=== PATIENT | male | born 1940 | race Caucasian/White ===

== ENCOUNTER 2025-02-15 13:20 | Outpatient (AMB) | payer MEDICARE, SELFPAY ==
--- NOTE | 2025-02-15 13:22 | A.OFFPC_ITS ---
Vital Signs 02/15/25 14:10 02/15/25 14:49 Height 6 ft Weight 1816 lb BMI 246.3 BP 144/65 H 130/60 Blood Pressure Location Rt brachial Rt brachial Position Sitting Sitting Respiration 16 Pulse 67 Pulse Source Pulse Oximeter Temp 98.3 F Temp Source Oral Pulse Oximetry (%) 95 Oxygen Delivery Method Room Air Intake Visit Reasons: EST CARE/PERSCRIPTIONS Intake Note: patient here for new patient visit and prescription Senior Validation Engineer Required: No Allergies No Known Allergies Allergy (Verified 02/15/25 14:23) Medication List - Last Reconciled 02/15/25 by Cristopher Paulson CNP acetaminophen (Tylenol) 325 mg PO QID PRN cholecalciferol (vitamin D3) 25 mcg PO DAILY rtjjzohbjqs-ecskvbsat-inxgqjfx 200-62.5-25 mcg (Trelegy Ellipta) 1 inh inhalation DAILY mecobalamin (vitamin B12) 1,000 mcg PO DAILY rosuvastatin 5 mg PO DAILY thiamine HCl (vitamin B1) 100 mg PO DAILY Tobacco use date assessed: 02/15/25 Fall risk assessment: No Falls in past year Last assessed Fall Risk: 02/15/25 Dental Screening Dental Screen Date: 02/15/25 Did you have a dental visit in the last 12 months?: No Did you have a dental problem in the last 6 months where you did not have access to dental care?: No Was dental information given to patient?: Patient has dentist HPI HPI Comments History of Present Illness Details 84-year-old male, accompanied by his wif e, presents to [facility]. He is on 3-4L continuous oxygen for COPD. Prior PCP? - Diane Perales Last office visit - 09/2024 CPE/labs - Over a year ago Acute issue(s) - None Past Medical History - COPD, kidney stones, arthritis, bladde r cancer, cataract both eyes Surgical History - Urostomy, cataract surgery, back surge ry x2 to remove kidney stones Family History - None Social History - Former smoker, quit 20 years ago. Does not vape. Does not drink alcohol. Denies recreational drug use - Has been making healthy dietary choice s. Exercises routinely. Generally sleep well Health maintenance - Last eye exam was in [address] Sanchez ziegler. He will call his standard machine stitcher to schedule an eye exam - Last dental visit was 2 years ago; enc ouraged to schedule an appointment with his dentist for routine dental care - Last tetanus vaccine was within the pa st 10 years - He notes that he is up-to-date on the shingles and pneumonia vaccines - Has not been vaccinated for the flu ; declines vaccination - Last colonoscopy was 10 years ago at [facility] Perales: Normal. Declines colonoscopy or Cologuard test at this time Specialists - Urologist Dr. Macias, [facility] pulmonology [facility] Medical History (Updated 02/15/25 @ 14:48 by Cristopher Paulson CNP) Arthritis COPD (chronic obstructive pulmonary disease) Kidney stones Surgical History (Updated 02/15/25 @ 15:02 by Cristopher Paluson CNP) History of urostomy Social History Housing: House Patient Tobacco Use Status: Never used Tobacco e-Cigarette/Vaping Use: Never Used Second Hand Smoke Exposure: No service: No Current occupational status: retired Cognitive needs: Yes Hearing needs: No Vision needs: No Questionnaire PHQ-9 Over the last 2 weeks, how often have you been bothered by any of the following problems? 1. Little interest or pleasure in doing things: not at all 2. Feeling down, depressed, or hopeless: not at all 3. Trouble falling or staying asleep, or sleeping too much: not at all 4. Feeling tired or having little energy: several days 5. Poor appetite or overeating: not at all 6. Feeling bad about yourself - or that you are a failure or have let yourself or your family down: not at all 7. Trouble concentrating on things, such as reading the newspaper or watching television: not at all 8. Moving or speaking so slowly that other people could have noticed. Or the opposite - being so fidgety or restless that you have been moving around a lot more than usual: not at all 9. Thoughts that you would be better off or of hurting yourself in some way: not at all Total score: 1 Depression Screening Interpretation: Negative Depression Screening Done: Yes 19212 - PHQ-9 Billing: Yes Source: Developed by Drs. Jose Alejandro Skinner, Anjelica Valdez, Saurabh Rosenthal and colleagues, with an educational radha from [employer]. Thrive Questionnaire Date Thrive assessed: 02/15/25 I am a: Patient What is your living situation today?: I have a steady place to live Within the past 12 months, did the food you bought not last and you didn't have the money to get more?: Never true Within the past 12 months, did you worry whether your food would run out before you got money to buy more?: Never true Do you have trouble paying for medicines?: No Do you have trouble getting transportation to medical appointments?: No Do you have trouble paying your heating and electricity bill?: No Do you have trouble taking care of your child, family member or friend?: No Do you have trouble with day-to-day activities such as bathing, preparing meals, shopping, managing finances, etc.?: No Are you currently unemployed and looking for a job?: No Are you interested in more education?: No Please select the resources that you would like help with: None Currently or been in a relationship where the following occur: No concerns reported THRIVE Score: 0 AUDIT C Alcohol Use Questionnaire (AUDIT-C) 1. How often do you have a drink containing alcohol?: Never 3. How often do you have six or more drinks on one occasion?: Never Total Score: 0 Score Reviewed/Action Taken: Yes BRUCE-7 AMB Questionnaire BRUCE-7 Date BRUCE - 7 assessed: 02/15/25 Feeling nervous, anxious, or on edge: 0 = Not at all Not being able to stop or control worryin = Not at all Worrying too much about different things: 0 = Not at all Trouble relaxin = Not at all Being so restless that it is hard to sit still: 0 = Not at all Becoming easily annoyed or irritable: 0 = Not at all Feeling afraid as if something awful might happen: 0 = Not at all Total BRUCE-7 score (0-4 normal; 5-9 mild; 10-14 moderate; 15-21 severe): 0 Source: Developed by Drs. Jose Alejandro Skinner, Anjelica Valdez, Saurabh Rosenthal and colleagues, with an educational radha from [employer]. BRUCE-7 Assessment Billing BRUCE-7 Assessment Tool: BRUCE-7 Assessment 57198 Review of Systems Const Details: Denies chills, Denies fatigue, Denies fever(s), Denies headache(s) and Denies weakness HEENT Denies change in vision, Denies dizziness, Denies headache(s), Denies hearing loss, Denies nasal congestion, Denies sinus pain, Denies sinus pressure and Denies sore throat Card Denies chest pain, Denies lightheadedness, Denies dyspnea and Denies other (palpitations) Resp Denies cough, Denies dyspnea and Denies wheezing GI Denies abdominal pain, Denies melena, Denies hematochezia, Denies change in bowel habits, Denies dyspepsia and Denies nausea Denies hematuria and Denies dysuria Musc Denies abnormal gait, Denies myalgias, Denies arthralgias, Denies numbness and Denies tingling Skin/Breast Denies rash, Denies unusual bruising and Denies wounds Neuro Denies abnormal gait, Denies dizziness, Denies headache(s), Denies memory loss, Denies numbness, Denies Sensory deficit (Neuro), Denies tingling and Denies weakness Psych Denies anxiety, Denies depression and Denies memory loss Endo Denies cold intolerance, Denies fatigue, Denies heat intolerance, Denies polydipsia and Denies polyuria Preet/Lymph Denies easy bleeding and Denies easy bruising Aller/Immun Denies wheezing Physical exam (Primary Care) PHQ-9: PHQ-9 Score PHQ-9: Total score 1 02/15/25 13:43 Depression Screening Interpretation: Negative Thrive Assessment: Date of Thrive Assessment Date Thrive assessed 02/15/25 02/15/25 13:24 Currently or been in a relationship where the following occur: No concerns reported Const Other: General: no acute distress, well developed, alert and awake Nutritional Appearance: well nourished Orientation/consciousness: patient oriented x3 HENMT Head: Yes normocephalic and Yes atraumatic Ears: hearing grossly normal bilaterally and TM's normal bilaterally General nose exam: Normal external nose present and Normal nares present Mouth: Normal oral and palatal mucosa present and moist mucous membranes Teeth and gingiva: dentition normal Throat: Yes oropharynx normal Eyes Pupils: Equal, round and reactive pupils present and Pupil accommodation reflex normal EOM: EOMs intact bilaterally Neck Neck: Yes normal visual inspection, Yes no lymphadenopathy and Yes trachea midline Thyroid: Thyroid normal Carotids: no bruits Lymphatic: no lymphadenopathy noted Chest Chest palpation & inspection: normal inspection of the chest Resp Effort & Inspection: normal respiratory effort Auscultation: clear to auscultation bilaterally Cardio Rate: regular rate Rhythm: regular rhythm Heart sounds: S1 normal heart sound present, S2 normal heart sound present, no gallops, no murmurs and no rubs Bruits: no abdominal aortic bruits and no carotid bruits GI Palpation (GI): No Abdominal aortic bruit present, Soft to palpation, nontender, No hepatosplenomegaly present and No Rebound tenderness present Auscultation: normal bowel sounds General: Yes no CVA tenderness Back/Spine/Pelvis Back: no CVA tenderness Cervical Spine: cervical ROM normal and No Cervical spine tenderness Thoracic/Lumbar Spine: thoraco-lumbar ROM normal, No pain with thoraco-lumbar ROM, No thoracic spinal tenderness and No lumbar spinal tenderness Skin General: warm and dry. Normal skin color. Normal skin turgor. Stoma to right lower quadrant is beefy red without overt infection. Clear yellow urine noted in urostomy bag Lesions: no lesions Rashes: no rashes Trauma: no lacerations or abrasions Wounds: no wounds Nails: normal Neuro General: patient oriented x3, gait normal and CN's II-XI intact bilaterally Cranial nerves: Yes Equal, round and reactive pupils present Cognition (Neuro): normal cognition Gait exam (Neuro): Normal gait present Motor exam (neuro): 5/5 motor strength present throughout Sensory Exam: No Sensory deficit (Neuro) Deep tendon reflexes (DTR's): Right patellar reflex intensity grade: 2+ and Left patellar reflex intensity grade: 2+ Extrem General: Yes normal to inspection, No edema and No calf tenderness Psych Appearance: grossly normal Affect: normal affect Attitude: cooperative Thought process: Normal thought process present Coding Level of Care Code New Pt Prev Care >65yr (71234) Diagnoses Normal physical examination, routine Z00.00 History of urostomy Z98.890 Laboratory tests ordered as part of a complete physical exam (CPE) Z. Additional Codes BRUCE-7 Assessment Billing - BRUCE-7 Assessment Tool: BRUCE-7 Assessment 86738 ([id number]) PHQ-9 - 60836 - PHQ-9 Billing: Yes ([id number]) Assessment & Plan Assessment & Plan (1) Normal physical examination, routine: Code(s): Z00.00 - Encounter for general adult medical examination without abnormal findings Category: Medical Plan: No significant functional limitations noted. Continue current treatment regimen. Continue follow-up with specialists as planned. Healthy diet and routine exercise encouraged. Perform lab work and follow-up for a telehealth visit in 2-4 weeks. Return sooner with symptoms or concerns. Verbalized understanding and agreed with the plan. (2) History of urostomy: Code(s): Z98.890 - Other specified postprocedural states Category: Surgical Plan: Stoma to right lower quadrant is beefy red without overt infection. Clear yellow urine noted in urostomy bag. Followed by urology. (3) Laboratory tests ordered as part of a complete physical exam (CPE): Code(s): Z00.00 - Encounter for general adult medical examination without abnormal findings Category: Medical Plan: Fasting labs ordered as part of a complete physical exam. Advised to fast for at least 10 hours before getting labs drawn. May drink water Verbalized understanding and agreed with treatment plan. Orders: Orders Complete Blood Count Auto Diff Today Z00.00 - Encounter for general adult medical examination without abnormal findings Lipid Panel Today Z00.00 - Encounter for general adult medical examination without abnormal findings PSA, Ultra Sensitive Today Z00.00 - Encounter for general adult medical examination without abnormal findings TSH reflex Free T4 Today Z00.00 - Encounter for general adult medical examination without abnormal findings Vitamin D 25-OH Total Today Z00.00 - Encounter for general adult medical examination without abnormal findings Comprehensive [place]. Panel Fast Today Z00.00 - Encounter for general adult medical examination without abnormal findings Microalbumin, Random (w Creat) Today Z00.00 - Encounter for general adult medical examination without abnormal findings UA CC w/rflx Micro + Cult Today Z00.00 - Encounter for general adult medical examination without abnormal findings Medications: New hzfvftkipxv-lcdppmsom-hrtecjpp 200-62.5-25 mcg (Trelegy Ellipta) 1 inh inhalation DAILY 60 ea 3RF rosuvastatin 5 mg PO DAILY 90 tabs 1RF 90 days
[2025-02-15 14:10] VITALS: BP 144/65; PULSE 67; RESP 16; TEMP 36.8; O2SAT 95; BMI 246.3
--- OUTSIDE RECORDS SUMMARY | 2025-02-15 14:36 | XMS_ITS | Encounter Summary ---
Author Organization [facility] Address [address] [place] [address] Phone Care Team Providers Care Telecommunications Clerk Name Role Phone Dylan Tomas MD Primary Care Provider + Encounter Details Date Type Department Care Team (Latest Contact Info) Description 12/01/2015 Transcribe Orders [facility] Radiology [address] [place] [id number] Amauri Dickey [address] [phone] [email or web address] Gross hematuria (Primary Dx) Social History Tobacco Use Types Packs/Day Years Used Date Smoking Tobacco: Former Cigarettes 1 60 0 [birth year]/30/1954 - 12/30/2014 Alcohol Use Standard Drinks/Week Comments Yes 0 (1 standard drink = 0.6 oz pur e alcohol) 2 drinks/week Sex and Gender Information Value Date Recorded Sex Assigned at Male 06/23/2017 9:29 AM EST Legal Sex Male 6:59 PM EST Gender Identity Male Sexual Orientation Straight documented as of this encounter Functional Status * Patient is deaf or has serious difficulty with hearing Answer Date of Assessment Author No 01/04/2015 12:22 PM EDT Kaiser Charles PA * Patient is blind or has serious difficulty with seeing, even when wearing glasses Answer Date of Assessment Author No 01/04/2015 12:22 PM EDT Kaiser Charles PA * Patient has serious difficulty walking or climbing stairs (5yr old or older) Answer Date of Assessment Author No 01/04/2015 12:22 PM EDT Kaiser Charles PA * Patient has serious difficulty dressing or bathing (5yr old or older) Answer Date of Assessment Author No 01/04/2015 12:22 PM EDT Kaiser Charles PA * Patient has serious difficulty doing errands alone such as visiting a doctor???s office or shopping, due to physical, mental, or emotional condition (15 years old or older) Answer Date of Assessment Author No 01/04/2015 12:22 PM EDT Kaiser Charles PA documented as of this encounter Mental Status * Patient has serious difficulty concentrating, remembering, or making decisions due to physical, mental, or emotional condition Answer Entry Date Author No 01/04/2015 12:22 PM EDT Kaiser Charles PA documented in this encounter Plan of Treatment Not on file documented as of this encounter Results * CT 3D Reconstruction Abdomen and Pelvis (12/01/2015 2:14 PM EDT) Anatomical Region Laterality Modality Abdomen, Pelvis Computed Tomogra phy Impressions 12/01/2015 2:21 PM EDT 1. No recurrent bladder cancer in the upper tracts or urostomy. Filling defect seen in the left kidney, collecting system demonstrate slight change in appearance on additional delayed imaging and therefore suggestive of loose debris or clot rather than solid neoplasm. 2. Scarred and hydronephrotic left kidney as well as thickened and enhancing left ureter, unchanged since 2014 and likely secondary to chronic reflux. 3. Stable subcentimeter retroperitoneal lymph nodes are likely reactive, but there watching. 4. Trace cholelithiasis. 5. Stable bilateral adrenal adenomas. I, the teaching physician, have reviewed the images and agree with the report as written. Narrative 12/01/2015 2:21 PM EDT INDICATION: History of invasive bladder cancer status post radical cystoprostatectomy and ileal loop urinary diversion. Patient also has history of stone disease status post lithotripsy and ureteral stent. TECHNIQUE: CT scan of abdomen and pelvis was obtained before and after intravenous injection of 100 mL of Omnipaque 350, 10 mg of IV furosemide and enteric contrast (water) using the CT urography protocol. COMPARISON: CT urogram from 04/18/2015, CT abdomen/pelvis from 01/02/2015, 11/20/2009 FINDINGS: LOWER CHEST: Bibasilar scarring. Coronary artery calcifications. LIVER: Stable subcentimeter cyst in segment 5. BILIARY SYSTEM: Trace cholelithiasis. No biliary ductal dilation. PANCREAS: Normal SPLEEN: Normal ADRENAL GLANDS: There are bilateral adrenal nodules. The right adrenal nodule measures 10 mm and demonstrates Hounsfield units diagnostic for lipid rich adenoma. The left adrenal nodule measures 12 mm and is nondiagnostic for lipid rich adenoma, however has been stable since 2009. KIDNEYS: Tiny cysts in the bilateral kidneys. Focal scarring in the posterior right kidney in keeping with prior percutaneous nephrostomy. Stable scarring of the left kidney with stable predominantly upper pole hydronephrosis. There is thickened enhanced appearance to the left ureter, not significantly changed since the prior exam. BOWEL: Colonic diverticula. Normal appendix. Loop of small bowel herniates through parastomal hernia in the right lower quadrant, without obstruction. MESENTERY, OMENTUM AND PERITONEUM: No ascites RETROPERITONEUM: No masses PELVIC ORGANS: Status post cystoprostatectomy. LYMPH NODES: Subcentimeter retroperitoneal lymph nodes are unchanged. Specifically, para-aortic and aortocaval lymph nodes measure 7 - 8 mm in short axis. VASCULATURE: Atherosclerotic calcification. No aneurysm. BONES AND SOFT TISSUES: Tiny fat-containing umbilical hernia. Small fat containing right inguinal hernia. 3D IMAGES: Volume rendered, maximum-intensity projection (MIP) with and without bone and curved planar images were performed on an independent dedicated workstation by a technologist in a 3D lab that is monitored by a physician to evaluate the collecting system, ureters, and urostomy. The collecting systems are well-opacified and appears normal on the right. There are multiple filling defects seen in the collecting system on the left. Additional delayed imaging demonstrates slightly different configuration to the filling defects in the left collecting system and therefore suggestive of loose debris or clot rather than neoplasm (5:39 and 14:11). The ureters systems are well-opacified and appear normal. No hydronephrosis or hydroureter. No calculi. No urothelial abnormality, wall thickening, dilatation or stricture. The right lower quadrant urostomy demonstrates expected appearance. Post void residual urine volume is minimal. Procedure Note Rena Wilhelm MD - 12/22/2015 INDICATION: History of invasive bladder cancer status post radical cystoprostatectomy and ileal loop urinary diversion. Patient also has history of stone disease status post lithotripsy and ureteral stent. TECHNIQUE: CT scan of abdomen and pelvis was obtained before and after intravenous injection of 100 mL of Omnipaque 350, 10 mg of IV furosemide and enteric contrast (water) using the CT urography protocol. COMPARISON: CT urogram from 04/18/2015, CT abdomen/pelvis from 01/02/2015, 11/20/2009 FINDINGS: LOWER CHEST: Bibasilar scarring. Coronary artery calcifications. LIVER: Stable subcentimeter cyst in segment 5. BILIARY SYSTEM: Trace cholelithiasis. No biliary ductal dilation. PANCREAS: Normal SPLEEN: Normal ADRENAL GLANDS: There are bilateral adrenal nodules. The right adrenal nodule measures 10 mm and demonstrates Hounsfield units diagnostic for lipid rich adenoma. The left adrenal nodule measures 12 mm and is nondiagnostic for lipid rich adenoma, however has been stable since 2009. KIDNEYS: Tiny cysts in the bilateral kidneys. Focal scarring in the posterior right kidney in keeping with prior percutaneous nephrostomy. Stable scarring of the left kidney with stable predominantly upper pole hydronephrosis. There is thickened enhanced appearance to the left ureter, not significantly changed since the prior exam. BOWEL: Colonic diverticula. Normal appendix. Loop of small bowel herniates through parastomal hernia in the right lower quadrant, without obstruction. MESENTERY, OMENTUM AND PERITONEUM: No ascites RETROPERITONEUM: No masses PELVIC ORGANS: Status post cystoprostatectomy. LYMPH NODES: Subcentimeter retroperitoneal lymph nodes are unchanged. Specifically, para-aortic and aortocaval lymph nodes measure 7 - 8 mm in short axis. VASCULATURE: Atherosclerotic calcification. No aneurysm. BONES AND SOFT TISSUES: Tiny fat-containing umbilical hernia. Small fat containing right inguinal hernia. 3D IMAGES: Volume rendered, maximum-intensity projection (MIP) with and without bone and curved planar images were performed on an independent dedicated workstation by a technologist in a 3D lab that is monitored by a physician to evaluate the collecting system, ureters, and urostomy. The collecting systems are well-opacified and appears normal on the right. There are multiple filling defects seen in the collecting system on the left. Additional delayed imaging demonstrates slightly different configuration to the filling defects in the left collecting system and therefore suggestive of loose debris or clot rather than neoplasm (5:39 and 14:11). The ureters systems are well-opacified and appear normal. No hydronephrosis or hydroureter. No calculi. No urothelial abnormality, wall thickening, dilatation or stricture. The right lower quadrant urostomy demonstrates expected appearance. Post void residual urine volume is minimal. IMPRESSION: 1. No recurrent bladder cancer in the upper tracts or urostomy. Filling defect seen in the left kidney, collecting system demonstrate slight change in appearance on additional delayed imaging and therefore suggestive of loose debris or clot rather than solid neoplasm. 2. Scarred and hydronephrotic left kidney as well as thickened and enhancing left ureter, unchanged since 2015 and likely secondary to chronic reflux. 3. Stable subcentimeter retroperitoneal lymph nodes are likely reactive, but there watching. 4. Trace cholelithiasis. 5. Stable bilateral adrenal adenomas. I, the teaching physician, have reviewed the images and agree with the report as written. us Karin Marc MD IMG CT Edited Resu lt - Final documented in this encounter Visit Diagnoses Diagnosis Gross hematuria- Primary documented in this encounter Care Teams Telecommunications Clerk Relationship Specialty Start Date End Date Dylan Tomas MD [address] [place] [id number] PCP - General Internal Medicine 12/09/14 documented as of this encounter Additional Source Comments The information contained in this document represents components of the legal health record. It is not the complete legal health record.[facility]
--- OUTSIDE RECORDS SUMMARY | 2025-02-15 14:36 | XMS_ITS | Encounter Summary ---
Author Organization [facility] Address [address] [place] [address] Phone Care Team Providers Care Floor Surfacer Name Role Phone Dylan Tomas MD Primary Care Provider + Encounter Details Date Type Department Care Team (Late st Contact Info) Description 09/16/2024 Procedure Pass [facility] [address] [place] [address] Social History Tobacco Use Types Packs/Day Years Used Date Smoking Tobacco: Former Cigarettes 2 20 0 12/30/1994 - 12/30/2014 Smokeless Tobacco: Never Comments:none since October 2017 ; Quit smoking 2009 Alcohol Use Standard Drinks/Week Comments Not Currently 0 (1 standard drink = 0.6 oz pure alcohol) 1 cocktail per month on special occasions Education Answer Date Recorded Are you interested in more education? Not on blossom e 10/12/2022 Are you concerned about learning? Not on file 10/12/2022 No 10/12/2022 No 10/12/2022 Digital Access Answer Date Recorded No 11/10/2022 No 11/10/2022 Reliable internet access at home? Not on file 11/10/2022 Device with a working camera? Not on file Intimate Partner Violence Answer Date R ecorded Are you denied basic needs s uch as food, clothing, or medical care? No 09/16/2024 In the past 12 months have y ou been in a relationship with a person who hurts, threatens, or tries to control you? No 09/16/2024 Are you denied basic needs s uch as food, clothing, or medical care? No 09/16/2024 In the past 12 months have y ou been in a relationship with a person who hurts, threatens, or tries to control you? No 09/16/2024 Sex and Gender Information Value Date Recorded [...] on file documented as of this encounter Visit Diagnoses Not on filedocumented in this encounter Additional Health Concerns Assessment Noted Time PHQ-2 Depression Total Score: 0 11/06/19 18 4:02 PM EDT documented as of this encounter Care Teams Floor Surfacer Relationship Specialty Start Date End Date Dylan Tomas MD [address] [place] [id number] PCP - General Internal Medicine 12/09/14 documented as of this encounter Additional Source Comments The information contained in this document represents components of the legal health record. It is not the complete legal health record.[facility]
--- OUTSIDE RECORDS SUMMARY | 2025-02-15 14:36 | XMS_ITS | Encounter Summary ---
Author Organization [facility] Address [address] [place] [address] Phone Care Team Providers Care Block Cuber Name Role Phone Dylan Tomas MD Primary Care Provider + Encounter Details Date Type Department Care Team (Late st Contact Info) Description 09/16/2024 Procedure Pass [facility] [address] [place] [id number] Social History Tobacco Use Types Packs/Day Years [...] documented as of this encounter Care Teams Block Cuber Relationship Specialty Start Date End Date Dylan Tomas MD [address] [place] [id number] PCP - General Internal Medicine 12/09/14 documented as of this encounter Additional Source Comments The information contained in this document represents components of the legal health record. It is not the complete legal health record.[facility]
--- OUTSIDE RECORDS SUMMARY | 2025-02-15 14:36 | XMS_ITS | Clinical Summary ---
Author Organization [facility] Address [address] [facility] [address] [place] [phone] Phone Care Team Providers Care Design Sales Consultant Name Role Phone Dylan Tomas MD Primary Care Provider + Allergies Active Allergy Reactions Criticality Noted Date Comments Nitrofurantoin Monohyd/M-Cryst Hives 01/09 Adhesive Tape-Silicones 11/24/2017 Blisters Medications cyanocobalamin, vitamin B-12, 1000 MCG tablet Take 1,000 mcg by mouth daily. Active cholecalciferol 2,000 unit Tab Take 1,000 Units by mouth daily. Active fluticasone propionate (FLONASE) 50 mcg/actuation nasal spray 2 sprays by Nasal route daily as needed (As needed for allergies.). Active Medication-Free Text Dship Natura Urostomy Bag Dx code(s): Z90.6 (Hx of radical cystectomy) C67.9 (Bladder cancer) Z93.6 (Artifical opening of urinary tract) 20 EA 11 9 Active Medication-Free TextIndications: Malignant neoplasm of urinary bladder, unspecified site Bard Night Bag ([id number]) Dx code(s): Z90.6 (Hx of radical cystectomy) C67.9 (Bladder cancer) Z93.6 (Artifical opening of urinary tract) 1 each 11 9 Active Medication-Free TextIndications: Malignant neoplasm of urinary bladder, unspecified site Dship Durah Moldable wafer ([id number]) Dx code(s): Z90.6 (Hx of radical cystectomy) C67.9 (Bladder cancer) Z93.6 (Artifical opening of urinary tract) 20 each 11 9 Active Medication-Free Text Ostomy skin prep Dx code(s): Z90.6 (Hx of radical cystectomy) C67.9 (Bladder cancer) Z93.6 (Artifical opening of urinary tract) 50 EA 11 9 Active Medication-Free Text Barrier removal wipes Dx code(s): Z90.6 (Hx of radical cystectomy) C67.9 (Bladder cancer) Z93.6 (Artifical opening of urinary tract) 50 EA 11 9 Active Medication-Free TextIndications: Malignant neoplasm of urinary bladder, unspecified site,Presence of urostomy Stoma belt ( [id number]) Dx code(s): Z90.6 (Hx of radical cystectomy) C67.9 (Bladder cancer) Z93.6 (Artifical opening of urinary tract 10 each 11 9 Active Medication-Free TextIndications: Parastomal hernia of ileal conduit Osto-binder 1 each 12 9 Active acetaminophen (TYLENOL) 325 mg tablet Take 650 mg by mouth every 6 (six) hours as needed. 4 Active rosuvastatin (CRESTOR) 5 MG tablet Take 5 mg by mouth nightly at bedtime. 5 Active aspirin 81 mg chewable tablet Take 81 mg by mouth daily. 1 Active ipratropium-albu teroL (COMBIVENT RESPIMAT) 20-100 mcg/actuation Mist Inhale into the lungs every 4 (four) hours as needed. 4 Active tamsulosin (FLOMAX) 0.4 mg Cap Take 1 capsule (0.4 mg total) by mouth nightly at bedtime for 7 days. Take as needed for stent colic (flank pain) 7 capsule 5 Active fluticasone-umec lidin-vilanter (TRELEGY ELLIPTA) 200-62.5-25 mcg inhaler Inhale 1 puff into the lungs daily. 180 each 3 5 Active Active Problems Problem Noted Date Diagnosed Date Right distal ureteral calculus 12/01/2017 Overview (12/01/2017): Admit to OBS -APAP, oxy, toradol -ADAT -Cipro x3d (Rx in chart) - PRN reinforce pressure dressing -d/c in AM; Rx in chart Assessment & Plan (12/02/2017 5:57 AM EDT): -Regular diet, po pain -Cipro x3d (Rx in chart) - PRN reinforce pressure dressing -Home Acute renal failure 10/25/2017 Assessment & Plan (10/25/2017 4:46 PM EDT): Patient with baseline Cr 0.9-1.0. He presented with Cr 1.56 likely pre-renal etiology in the setting of poor PO intake prior to arrival and urosepsis. Patient s/p 1L NS bolus on admission. -Re-bolus 500cc NS then give NS mIVFs while NPO as above -Trend Cr Hypoxia 10/25/2017 Assessment & Plan (10/25/2017 4:47 PM EDT): In the ED the patient was noted to be mildly hypoxic to 87% for which he was placed on 6L NC weaned to 4L with improvement to an O2 sat in the low 90s and no increased work of breathing per the patient at any time. The patient denies using any supplemental oxygen at home and per him and his family his respiratory status remains at baseline. Cannot exclude potential COPD component given significant smoking history although this has not been diagnosed. No evidence of PNA on admission CXR. Unknown LVEF but no rales on admission exam to suggest volume overload nor pulmonary edema with IVFs. -Supplemental O2 PRN, wean as tolerated -Monitor respiratory status closely while giving IVFs -Encourage smoking cessation Septic shock 10/25/2017 Kidney stones 01/16/2015 Assessment & Plan (01/17/2015 6:11 AM EDT): 01/17/15 AM: - wean O2 - HLIV - continue PCN to gravity - anticipate d/c home today with daily Bactrium until nephrostogram Bacteremia 01/02/2015 Assessment & Plan (01/03/2015 12:29 PM EDT): Presented with several SIRS criteria and radiologic evidence of new obstruction in the R renal collecting system. CXR without clear infiltrate given cough. Treat with broad spectrum abx, now s/p urgent IR decompression with purulent material sent for culture. Now improved s/p fluid resuscitation. - f/u BCx: prelim results with 1/4 GNR from anaerobic medium - UCx pending growing >100,000 E.coli with pending sensies - Fluid culture from IR procedure pending(G-stain with 4+polys, no epis, 4+G+ cocci in pairs and chains/ clusters) -vanc/cefepime/flagyl currently, renally dosed (of note pt has allergic rxn to PCN, but has already tolerated cefepime) -fu Vanc trough 01/03 PM -[facility] recs, Dr. Macias aware - tb re: timing of stone removal (scheduled for Jan 16 prior to this episode) Assessment & Plan (01/03/2015 11:35 AM EDT): Presented with several SIRS criteria and radiologic evidence of new obstruction in the R renal collecting system. CXR without clear infiltrate given cough. Treat with broad spectrum abx, now s/p urgent IR decompression with purulent material sent for culture. Now improves s/p fluid resuscitation. Dx - f/u BCx: prelim results with 1/4 GNR - f/u UCx - f/u fluid culture from IR procedure Tx -IVF resuscitation, MAP>65, HR<100, UO>0.5 cc/kg/hr -vanc/cefepime/flagyl currently, renally dosed (of note pt has allergic rxn to PCN, but has already tolerated cefepime) -fu Vanc trough 01/03 PM -source control with IR for decompression -[facility] recsDr. Macias aware - tb re: timing of stone removal (scheduled for Jan 16 prior to this episode) Coagulation defect 01/02/2015 Assessment & Plan (01/03/2015 12:49 PM EDT): INR 1.7 on admission, may be 2/2 abx, poor PO. DIC panel negative. -coags daily -PO vitamin K x 3 days Assessment & Plan (01/03/2015 5:21 AM EDT): INR 1.7 on admission, may be 2/2 abx, poor PO. DIC panel negative. -coags daily -PO vitamin K x 3 days Calculus of both kidneys 12/09/2014 Malignant neoplasm of urinary bladder 11/22/2009 Overview (08/06/2014): Bladder cancer Bladder cancer Assessment & Plan (01/03/2015 12:39 PM EDT): S/p radical cystectomy 2009, in remission, though being worked up as well for upper tract malignancy. Was scheduled for biopsy in January for suspicious filling defects on imaging. -will need to f/up with Dr. Macias after hospitalization Assessment & Plan (01/02/2015 10:55 PM EDT): S/p radical cystectomy 2009, in remission, though being worked up as well for upper tract malignancy. -will need to f/up with Dr. Macias after hospitalization Hyperlipidemia Assessment & Plan (10/25/2017 4:47 PM EDT): Patient not currently on any medications for hyperlipidemia. -PCP to continue routine monitoring of lipid panel Chronic obstructive pulmonary disease Overview (09/13/2024): managed on Trelegy, prn inh, uses O2 2-3Lmin prn and nightly - sleeps in recliner last 2-3 yrs, no steroids, RA O2 sat 90-91%, [phone] last hosp 12/2023 i/s/o COVID/ sepsis Resolved Problems Problem Noted Date Diagnosed Date Resolved Date Ureteral calculus of right kidney transplant 8 12/01/2017 Sepsis 10/25/2017 10/26/2017 Assessment & Plan (10/25/2017 4:45 PM EDT): Patient presented with a constellation of fevers at home to 102 deg F and in the ED had a rectal temperature to 104.8 deg F, tachycardia to the 110-120s, tachypnea to the upper 20s and a leukocytosis of WBC 27.57 on admission with a positive UA taken from his ileal conduit that was notable for 2+ blood, 3+ leuk esterase, 20 WBC, 4+ bacteria, although 1+ squamous cells as well as a 7mm nephrolith in the right distal ureter causing moderate to severe right hydroureteronephrosis all consistent with urosepsis of which the patient has previously presented. The patient has no new pulmonary symptoms aside from mild hypoxia (the acuity of which is unclear as family and patient state that his respiratory status is at baseline) and admission CXR was not suggestive of a PNA. No reported recent sick contacts nor symptoms to suggest any upper respiratory infection thus no alternative overt sources of infectious pulmonary etiology. Reassuringly lactate 1.6 WNL and no changes in mental status per patient and family thus organ hypoperfusion not suspected. -Urology evaluated patient in the ED and felt that emergent right percutaneous nephrostomy tube placement indicated to relieve blockage by the large obstructing stone in the right ureter at the level of the anastomosis -Per Urology will send a repeat UA from right PCN after placement, recs appreciated -Follow up blood cultures 10/25/2017 -Follow up both urine cultures (ileal conduit and right PCN tube) -Will need to speciate all organisms from repeat urine culture -IR consulted in the ED and the patient is being taken for right percutaneous nephrostomy tube placement, assistance appreciated -NPO and holding DVT ppx for procedure -Bolus additional 500cc NS and then maintain on NS mIVFs while NPO and until HRs normalize -Continue broad coverage with IV Vancomycin and IV Levofloxacin, consider expansion of coverage to IV Zosyn (although patient with Penicillin allergy that needs to be clarified, per chart patient has previously received and tolerated Cefepime), narrow based on micro data and clinical course -Patient will need outpatient follow up in Urology clinic with Dr. Macias for delayed definitive management of nephrolith following resolution of infection -Check EKG given tachycardia to ensure sinus -Monitor on tele -Tylenol PRN fevers, monitor temperatures post PCN procedure Cough 01/02/2015 01/04/2015 Assessment & Plan (01/03/2015 12:41 PM EDT): Chronic cough with white sputum production in setting of current smoking. Also with wheezing on exam. -outpatient PFTs -encourage smoking cessations -ensure vaccinations -Duo-nebs PRN -MICU US negative for pleural effusions Assessment & Plan (01/03/2015 5:17 AM EDT): Chronic cough with white sputum production in setting of current smoking. Also with wheezing on exam. -outpatient PFTs -encourage smoking cessations -ensure vaccinations -Duo-nebs PRN LUCAS (acute kidney injury) 01/02/2015 Assessment & Plan (01/03/2015 12:46 PM EDT): Hx of normal baseline Cr, now 2.5, likely 2/2 obstruction and sepsis. FeNa 1.7% (drawn after receiving >3L IVF) c/w obstruction, although possibly a pre-renal component i/s/o sepsis. S/p IVF resuscitation as above. Now improving s/p IR decompression. - Trend Cr daily -avoid nephrotoxins -renally dose meds Assessment & Plan (01/03/2015 11:32 AM EDT): Hx of normal baseline Cr, now 2.5, likely 2/2 obstruction and sepsis. FeNa 1.7% (drawn after receiving >3L IVF) c/w obstruction, although possibly a pre-renal component i/s/o sepsis. Now s/p IR decompression. Dx: - Trend Cr daily Tx: -avoid nephrotoxins -IVF resuscitation as above -s/p IR decompression Thrombocytopenia 01/02/2015 09/13/2024 Assessment & Plan (01/03/2015 12:50 PM EDT): Normal b/l, now 92, likely 2/2 severe sepsis and dilution. No recent heparin or clear culprits. -monitor closely -restarted on heparin ppx on transfer Assessment & Plan (01/03/2015 12:00 AM EDT): Normal b/l, now 92, likely 2/2 severe sepsis and dilution. No recent heparin or clear culprits. -trend daily for now Prostate cancer 12/14/2009 09/13/2024 Overview (09/13/2024): s/p resection Pneumonia 09/13/2024 Overview (09/13/2024): COVID/ pneumonia/ sepsis - 12/2023 hosp x 2 weeks, not intub Encounters Date Type Department Care Team Description 12/29/2024 Telephone [facility] Urology [address] [id number] [place] [address] Mike Casarez 12/29/2024 Orders Only [facility] Urology [address] [address] [place] [address] Mike Casarez 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 (Primary Dx); Flank pain 12/28/2024 5:30 PM EDT Telemedicine - audio only [facility] Urology [address] [facility] [address] [place] [address] Van Macias MD History of bladder cancer (Primary Dx); 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 12/16/2024 12:56 PM EDT - 12/16/2024 11:59 PM EDT Hospital Encounter [facility], [address] [address] Van Macias MD Discharge Disposition: Home or Self Care 08/16/2024 Procedure Pass [facility], [address] [address] from Last 3 Months Immunizations Immunization Administration Dates Next Due Pneumococcal polysaccharide PPSV23 01/03/2015, Family History Medical History Relation Comments Diabetes Brother Cerebral aneurysm Father Relation Status Comments Brother Father Social History Tobacco Use Types Packs/Day Years Used Date Smoking Tobacco: Former Cigarettes 2 20 0 12/30/1994 - 12/30/2014 Smokeless Tobacco: Never Tobacco Cessation:Counseling Given: Not Answered Comments:none since October 2017; Quit smoking 2009 Alcohol Use Standard Drinks/Week [...] EST Gender Identity Male Sexual Orientation Straight Last Filed Vital Signs Vital Sign Reading Time Taken Comments Blood Pressure 150/75 09/28/2024 4:03 PM EDT Pulse 73 09/28/2024 4:03 PM EDT Temperature 36.4 C (97.6 F) 09/16/2024 11:15 AM EDT Respiratory Rate 19 09/16/2024 11:15 AM EDT Oxygen Saturation 97% 09/16/2024 11:15 AM EDT Inhaled Oxygen Concentration 3% 10/25/2017 5 :45 PM EDT Weight 77.1 kg (170 lb) 09/13/2024 3:44 PM EDT Height 182.9 cm (6') 09/13/2024 3:44 PM EDT Body Mass Index 23.06 09/13/2024 3:44 PM EDT Plan of Treatment Health Maintenance Due Date Last Done Comments Adult Td,Tdap Booster 1940 ZOSTER VACCINES (1 of 2) 05/01/2016 03/06/2016 DEPRESSION SCREENING 11/05/2018 11/05/2017 COVID-19 VACCINE ( season) 2024 05/14/2023, 05/01/2022, 01/29/2022, Additional history exists INFLUENZA VACCINE (#1) 2025 PNEUMOCOCCAL VACCINES (50+ years) Completed 02/03/2023, 02/22/2016, 01/03/2015, Additional history exists RSV VACCINE Completed 06/05/2023 HEPATITIS A VACCINES Aged Out No long er eligible based on patient's age to complete this topic HIB VACCINES Aged Out No longer eligi ble based on patient's age to complete this topic MENINGOCOCCAL VACCINES (ACWY) Aged Out No longer eligible based on patient's age to complete this topic MENINGOCOCCAL VACCINES (B) Aged Out N o longer eligible based on patient's age to complete this topic Medical Devices Implanted Type Area Administrative Specialist Device Identifier Shelf Expiration Date Model / Serial / Lot Stent Ureteral 28cmx8.5fr Lub Flx Op Silicone - [id number] Implanted:Qty : 1 on 12/01/2017 by Van Macias MD at [facility] STANDARD OLYMPUS CHAD 06/14/2017 [id number] / / [id number] Stent Urological 7fr 30cm Double Pigtail Taper Tip Threaded Hydroplus Coated Percuflex Radiopaque Y - [id number] Implanted:Qty : 1 on 09/16/2024 by Van Macias MD at [facility] Ureteral Stent Right: Ureter [employer] MAREK [id number] 06/27/2026 [id number] / / [id number] Urostomy Right Ptn Procedures Procedure Name Priority Date/Time Associated Diagnosis Comments CT ABDOMEN/PELVIS (KIDNEY STONE) WITHOUT CONTRAST Routine 12/16/2024 1:28 PM EDT Flank pain from Last 3 Months Results * CT ABDOMEN/PELVIS (KIDNEY STONE) WITHOUT CONTRAST (12/16/2024 1:28 PM EDT) Anatomical Region Laterality Modality Abdomen, Pelvis Computed Tomogra phy 12/20/2024 9:42 PM EDT Impressions 12/20/2024 9:55 PM EDT 1. Right ureteral stent no longer seen. Bilateral renal stones, left greater than right. No right hydronephrosis. Mild left hydronephrosis and ureteral dilatation down to the ileal conduit. No ureteral stone is seen. Post radical cystectomy. Right peristomal hernia containing fat and small bowel. Narrative 12/20/2024 9:[address] ABDOMEN/PELVIS (KIDNEY STONE) WITHOUT CONTRAST Referring clinician's provided indication for this examination in Epic: * Flank pain, kidney stone suspected TECHNIQUE: Multidetector-row CT of the abdomen and pelvis was performed without intravenous contrast using tailored dose modulation techniques. Images were reconstructed in the axial, coronal, and sagittal planes. COMPARISON: Previous CT of the abdomen and pelvis most recent July 2024 ABSENCE OF INTRAVENOUS CONTRAST DECREASES SENSITIVITY FOR DETECTION OF FOCAL LESIONS AND VASCULAR PATHOLOGY. FINDINGS: Lower Chest: Increased peripheral reticular markings and attenuation questionable for interstitial lung disease. Significant coronary artery calcification Liver: Normal. No focal lesions. Biliary: Gallstones. No biliary ductal dilatation. Spleen: Normal. No splenomegaly or focal lesions. Pancreas: Normal. No masses or ductal dilatation. Adrenal Glands: Small stable bilateral adrenal nodules. Kidneys/Ureters: Right ureteral stent no longer seen. 1 to 2 mm stone in the lower pole of the right kidney. Multiple larger stones in the mid and lower pole of the left kidney, largest measuring 9 mm. Mild left hydronephrosis and mild left ureteral dilatation down to the ileal conduit. No right hydronephrosis or ureteral dilatation. No ureteral stone. Left renal cortical thinning. Bowel: Right lower quadrant ileal conduit and urostomy. Small parastomal hernia containing fat and small bowel. Mild diverticulosis of the colon. Normal appendix. Peritoneum/Retroperitoneum: Normal. No masses, pneumoperitoneum, or fluid. Lymph Nodes: Normal. No lymphadenopathy. Pelvic Organs/Bladder: Posterior radical cystectomy. Vessels: Atherosclerotic disease. No abdominal aortic aneurysm. Bones/Soft Tissues: Degenerative changes of the spine and hips. Small right inguinal and umbilical hernias containing fat. Right peristomal hernia containing fat and small bowel. Procedure Note Gricel Garcia MD - 12/20/2024 CT ABDOMEN/PELVIS (KIDNEY STONE) WITHOUT CONTRAST Referring clinician's provided indication for this examination in [facility]: *Flank pain, kidney stone suspected TECHNIQUE: Multidetector-row CT of the abdomen and pelvis was performedwithout intravenous contrast using tailored dose modulation techniques.Images were reconstructed in the axial, coronal, and sagittal planes. COMPARISON: Previous CT of the abdomen and pelvis most recent July2024 ABSENCE OF INTRAVENOUS CONTRAST DECREASES SENSITIVITY FOR DETECTION OFFOCAL LESIONS AND VASCULAR PATHOLOGY. FINDINGS: Lower Chest: Increased peripheral reticular markings and attenuationquestionable for interstitial lung disease. Significant coronary arterycalcification Liver: Normal. No focal lesions. Biliary: Gallstones. No biliary ductal dilatation. Spleen: Normal. No splenomegaly or focal lesions. Pancreas: Normal. No masses or ductal dilatation. Adrenal Glands: Small stable bilateral adrenal nodules. Kidneys/Ureters: Right ureteral stent no longer seen. 1 to 2 mm stone inthe lower pole of the right kidney. Multiple larger stones in the mid andlower pole of the left kidney, largest measuring 9 mm. Mild lefthydronephrosis and mild left ureteral dilatation down to the ilealconduit. No right hydronephrosis or ureteral dilatation. No ureteralstone. Left renal cortical thinning. Bowel: Right lower quadrant ileal conduit and urostomy. Small parastomalhernia containing fat and small bowel. Mild diverticulosis of the colon.Normal appendix. Peritoneum/Retroperitoneum: Normal. No masses, pneumoperitoneum, orfluid. Lymph Nodes: Normal. No lymphadenopathy. Pelvic Organs/Bladder: Posterior radical cystectomy. Vessels: Atherosclerotic disease. No abdominal aortic aneurysm. Bones/Soft Tissues: Degenerative changes of the spine and hips. Smallright inguinal and umbilical hernias containing fat. Right peristomalhernia containing fat and small bowel. IMPRESSION: 1. Right ureteral stent no longer seen. Bilateral renal stones, leftgreater than right. No right hydronephrosis. Mild left hydronephrosis andureteral dilatation down to the ileal conduit. No ureteral stone is seen.Post radical cystectomy. Right peristomal hernia containing fat and smallbowel. Van COTTON CT ABD/PELVIS Final Resul t from Last 3 Months Insurance MEDICARE PART A & B [employer] MEDEX SUPPLEMENT MEDICARE PART A & B [employer] MEDEX SUPPLEMENT MEDICARE PART A & B [employer] MEDEX SUPPLEMENT MEDICARE PART A & B [employer] MEDEX SUPPLEMENT MEDICARE PART A & B [employer] MED[employer] SUPPLEMENT MEDICARE PART A & B [employer] MEDEX SUPPLEMENT MEDICARE PART A & B [facility] MEDEX SUPPLEMENT MEDICARE PART A & B [employer] MEDEX SUPPLEMENT MEDICARE PART A & B [employer] MEDEX SUPPLEMENT Advance Directives For more information, please contact: [phone] (9AM - 5PM [facility], Friday-Friday) Documents on File Type Date Recorded Patient Test Lead Application Testing Expl anation Healthcare Proxy 01/05/2015 2:15 PM * Full Code (Presumed) (Latest Code Status on File) Date Activated Date Inactivated Comments 12/01/2017 2:30 PM 12/02/2017 1:52 PM * Full Code (Confirmed) Date Activated Date Inactivated Comments 10/25/2017 9:27 PM 10/31/2017 6:29 PM Question Answer Comments Code Discussion Comments: patient and HCP * Full Code (Confirmed) Date Activated Date Inactivated Comments 10/25/2017 4:37 PM 10/25/2017 9:27 PM Question Answer Comments Code Discussion Comments: Patient by Landen Georges PA-C. * Full Code (Presumed) Date Activated Date Inactivated Comments 01/16/2015 5:18 PM 01/17/2015 3:49 PM * Full Code (Presumed) Date Activated Date Inactivated Comments 01/02/2015 8:23 PM 01/04/2015 6:59 PM Care Teams Design Sales Consultant Relationship Specialty Start Date End Date Dylan Tomas MD [address] [place] [id number] PCP - General Internal Medicine 12/09/14 Additional Source Comments The information contained in this document represents components of the legal health record. It is not the complete legal health record.[facility]
--- OUTSIDE RECORDS SUMMARY | 2025-02-15 14:36 | XMS_ITS | Encounter Summary ---
Author Organization [facility] Address [address] [facility] [address] [place] [address] Phone Care Team Providers Care Fulfillment Representative Name Role Phone Dylan Tomas MD Primary Care Provider + Encounter Details Date Type Department Care Team (Latest Contact Info) Description 04/18/2015 Transcribe Orders [facility] [address] [place] [phone] Amauri Dickey [address] [place], [place] [id number] [email or web address] Gross hematuria (Primary Dx) Social History [...] * CT 3D Reconstruction Abdomen and Pelvis (04/18/2015 2:00 PM EST) Anatomical Region Laterality Modality Abdomen, Pelvis Radiographic Karis ging Impressions 04/25/2015 10:48 AM EST IMPRESSION: 1. Resolution of stone burden within the right kidney and ureter. Improvement of left renal stone burden with granular dependent calcifications within the left lower pole calyx. 2. Left moderate hydronephrosis and left ureteral dilatation is similar in degree to 12/09/2014. There is persistent urothelial thickening and hyperenhancement, but the degree of thickening has decreased since 12/09/2014. There is soft tissue density within the left upper pole calyx, but the size is diminished in comparison to 12/09/2014. This may represent resolving debris rather than a urothelial mass. 3. Normal right renal collecting system and ureter. 4. Decreased left periaortic lymphadenopathy. Narrative 04/25/2015 10:48 AM EST INDICATION: 73-year-old male with history of invasive bladder cancer status post radical cystoprostatectomy and ileal loop urinary diversion. In December, patient had obstructing right renal calculus and urosepsis with subsequent lithotripsy and ureteral stent. Ureteral stent and percutaneous Percutaneous nephrostomy tube removal in January 2015. TECHNIQUE: Helical axial images of the abdomen and pelvis were obtained before and after intravenous injection of 100 mL of Omnipaque 350, 200 mL of IV saline and enteric contrast (water) using the CT urography protocol. COMPARISON: CT of the abdomen and pelvis without contrast 01/02/2015. CT urogram 12/09/2014. FINDINGS: ABDOMEN CT: LOWER CHEST: Similar mild chronic changes at the lung bases. LIVER: 4 mm hypodensity within the hepatic dome is too small to characterize, but most likely a cyst. There is a 10 mm cyst within the inferior tip of the right hepatic lobe. BILIARY SYSTEM: Layering hyperdensity within the gallbladder fundus consistent with stones or dense sludge. No gallbladder wall thickening. No intrahepatic or extrahepatic biliary ductal dilatation. PANCREAS: Normal. SPLEEN: Normal. ADRENAL GLANDS: Stable mild thickening of the adrenal glands. KIDNEYS: Symmetric renal enhancement. There is a linear area of nonenhancing scar along the posterior lateral mid pole of the right kidney there is likely related to the tract of the prior percutaneous nephrostomy tube. There is no right renal or ureteral calculus. No right hydronephrosis. There is radiodense material within the inferior most left calyx (2:52-54 and 3:52-54). There is moderate left hydronephrosis. There is cortical volume loss at the upper pole of the left kidney with resultant greater degree of caliectasis within the upper than the lower pole. The left ureter is dilated up to the level of the ileal loop diversion measuring up to 14 mm in caliber and tapering to 7 mm just proximal to the ileal loop. There is a hyperenhancement and mild thickening of the urothelium of the left renal collecting system and the left ureter. BOWEL: Normal caliber. No mural thickening or adjacent inflammatory change. Diverticulosis. MESENTERY, OMENTUM AND PERITONEUM: No free air or free fluid. Mild left perinephric stranding, diminished. RETROPERITONEUM: No masses or hemorrhage. PELVIS CT: PELVIC ORGANS: Status post cystoprostatectomy. LYMPH NODES: No pelvic lymphadenopathy. A left periaortic lymph node at the level of the left renal artery measures 16 x 8 mm (4:62). No mesenteric lymphadenopathy. VASCULATURE: Moderate atherosclerotic calcification of the abdominal aorta without aneurysm. Atherosclerotic calcification continues into the iliac arteries. BONES AND SOFT TISSUES: No suspicious lytic or sclerotic lesions. Degenerative changes of the lumbar spine, greatest at L5-S1. Moderate osteoarthritis of the bilateral hips. Osteotomy within the right lower quadrant of the abdomen. 3D IMAGES: Volume rendered, maximum-intensity projection (MIP) with and without bone and curved planar images were performed on an independent dedicated workstation by a technologist in a 3D lab that is monitored by a physician to evaluate the collecting system, ureters, and bladder. Right renal collecting system and ureter are well-opacified and appear normal. There is diffuse hyperenhancement and mild thickening of the urothelium of the left renal collecting system and the left ureter. There is moderate hydronephrosis of the left kidney, which is greater in degree of the upper pole as a result of cortical volume loss. Excreted contrast layers within the left renal collecting system. Within a left upper pole calyx there is nondependent soft tissue density measuring approximately 40 HU (6:29-32). Procedure Note Janessa Devries MD - 04/25/2015 INDICATION: 73-year-old male with history of invasive bladder cancer status post radical cystoprostatectomy and ileal loop urinary diversion. In December, patient had obstructing right renal calculus and urosepsis with subsequent lithotripsy and ureteral stent. Ureteral stent and percutaneous Percutaneous nephrostomy tube removal in January 2015. TECHNIQUE: Helical axial images of the abdomen and pelvis were obtained before and after intravenous injection of 100 mL of Omnipaque 350, 200 mL of IV saline and enteric contrast (water) using the CT urography protocol. COMPARISON: CT of the abdomen and pelvis without contrast 01/02/2015. CT urogram 12/09/2014. FINDINGS: ABDOMEN CT: LOWER CHEST: Similar mild chronic changes at the lung bases. LIVER: 4 mm hypodensity within the hepatic dome is too small to characterize, but most likely a cyst. There is a 10 mm cyst within the inferior tip of the right hepatic lobe. BILIARY SYSTEM: Layering hyperdensity within the gallbladder fundus consistent with stones or dense sludge. No gallbladder wall thickening. No intrahepatic or extrahepatic biliary ductal dilatation. PANCREAS: Normal. SPLEEN: Normal. ADRENAL GLANDS: Stable mild thickening of the adrenal glands. KIDNEYS: Symmetric renal enhancement. There is a linear area of nonenhancing scar along the posterior lateral mid pole of the right kidney there is likely related to the tract of the prior percutaneous nephrostomy tube. There is no right renal or ureteral calculus. No right hydronephrosis. There is radiodense material within the inferior most left calyx (2:52-54 and 3:52-54). There is moderate left hydronephrosis. There is cortical volume loss at the upper pole of the left kidney with resultant greater degree of caliectasis within the upper than the lower pole. The left ureter is dilated up to the level of the ileal loop diversion measuring up to 14 mm in caliber and tapering to 7 mm just proximal to the ileal loop. There is a hyperenhancement and mild thickening of the urothelium of the left renal collecting system and the left ureter. BOWEL: Normal caliber. No mural thickening or adjacent inflammatory change. Diverticulosis. MESENTERY, OMENTUM AND PERITONEUM: No free air or free fluid. Mild left perinephric stranding, diminished. RETROPERITONEUM: No masses or hemorrhage. PELVIS CT: PELVIC ORGANS: Status post cystoprostatectomy. LYMPH NODES: No pelvic lymphadenopathy. A left periaortic lymph node at the level of the left renal artery measures 16 x 8 mm (4:62). No mesenteric lymphadenopathy. VASCULATURE: Moderate atherosclerotic calcification of the abdominal aorta without aneurysm. Atherosclerotic calcification continues into the iliac arteries. BONES AND SOFT TISSUES: No suspicious lytic or sclerotic lesions. Degenerative changes of the lumbar spine, greatest at L5-S1. Moderate osteoarthritis of the bilateral hips. Osteotomy within the right lower quadrant of the abdomen. 3D IMAGES: Volume rendered, maximum-intensity projection (MIP) with and without bone and curved planar images were performed on an independent dedicated workstation by a technologist in a 3D lab that is monitored by a physician to evaluate the collecting system, ureters, and bladder. Right renal collecting system and ureter are well-opacified and appear normal. There is diffuse hyperenhancement and mild thickening of the urothelium of the left renal collecting system and the left ureter. There is moderate hydronephrosis of the left kidney, which is greater in degree of the upper pole as a result of cortical volume loss. Excreted contrast layers within the left renal collecting system. Within a left upper pole calyx there is nondependent soft tissue density measuring approximately 40 HU (6:29-32). IMPRESSION: IMPRESSION: 1. Resolution of stone burden within the right kidney and ureter. Improvement of left renal stone burden with granular dependent calcifications within the left lower pole calyx. 2. Left moderate hydronephrosis and left ureteral dilatation is similar in degree to 12/09/2014. There is persistent urothelial thickening and hyperenhancement, but the degree of thickening has decreased since 12/09/2014. There is soft tissue density within the left upper pole calyx, but the size is diminished in comparison to 12/09/2014. This may represent resolving debris rather than a urothelial mass. 3. Normal right renal collecting system and ureter. 4. Decreased left periaortic lymphadenopathy. us Gricel Rios MD IMG CT Final Re sult documented in this encounter Visit Diagnoses Diagnosis Gross hematuria- Primary documented in this encounter Care Teams Fulfillment Representative Relationship Specialty Start Date End Date Dylan Tomas MD [address] [place] [phone] PCP - General Internal Medicine 12/09/14 documented as of this encounter Additional Source Comments The information contained in this document represents components of the legal health record. It is not the complete legal health record.[facility]
--- OUTSIDE RECORDS SUMMARY | 2025-02-15 14:36 | XMS_ITS | Encounter Summary ---
Author Organization [facility] Address [address] [facility] [address] [place] [address] Phone Care Team Providers Care Rubber Tubing Backer Name Role Phone Dylan Tomas MD Primary Care Provider + Encounter Details Date Type Department Care Team (Late st Contact Info) Description 10/25/2017 Procedure Pass [facility] [address] [place] [address] Social History Tobacco Use Types Packs/Day Years Used Date Smoking Tobacco: Former Cigarettes 2 20 0 12/30/1994 - 12/30/2014 Smokeless Tobacco: Never Alcohol Use Standard Drinks/Week Comments Yes 0 (1 standard drink = 0.6 oz pure alcohol) 1 cocktail per month on special occasions Sex and Gender Information Value Date Recorded [...] Diagnoses Not on filedocumented in this encounter Care Teams Rubber Tubing Backer Relationship Specialty Start Date End Date Dylan Tomas MD [address] [place] [phone] PCP - General Internal Medicine 12/09/14 documented as of this encounter Additional Source Comments The information contained in this document represents components of the legal health record. It is not the complete legal health record.[facility]
--- OUTSIDE RECORDS SUMMARY | 2025-02-15 14:36 | XMS_ITS | Encounter Summary ---
Author Organization [facility] Address [address] [facility] [address] [place] [address] Phone Care Team Providers Care Near Eastern Archaeology Lecturer Name Role Phone Dylan Tomas MD Primary Care Provider + Encounter Details Date Type Department Care Team (Late st Contact Info) Description 08/16/2024 Procedure Pass [facility], Ct Scan - [address] [address] Social History Tobacco Use Types Packs/Day Years [...] with a working camera? Not on file Sex and Gender Information Value Date Recorded [...] documented as of this encounter Care Teams Near Eastern Archaeology Lecturer Relationship Specialty Start Date End Date Dylan Tomas MD [address] [place] [phone] PCP - General Internal Medicine 12/09/14 documented as of this encounter Additional Source Comments The information contained in this document represents components of the legal health record. It is not the complete legal health record.[facility]
--- OUTSIDE RECORDS SUMMARY | 2025-02-15 14:37 | XMS_ITS | Encounter Summary ---
Author Organization [facility] Address [address] [facility] [address] [place] [address] Phone Care Team Providers Care Packing Checker Name Role Phone Dylan Tomas MD Primary Care Provider + Encounter Details Date Type Department Care Team (Late st Contact Info) Description 01/16/2015 Telephone [facility] Angio Interventional Radiology [address] [place] [id number] Lynette Apple RN Social History Tobacco Use Types Packs/Day Years [...] on filedocumented in this encounter Care Teams Packing Checker Relationship Specialty Start Date End Date Dylan Tomas MD [address] [place] [phone] PCP - General Internal Medicine 12/09/14 documented as of this encounter Additional Source Comments The information contained in this document represents components of the legal health record. It is not the complete legal health record.[facility]
--- OUTSIDE RECORDS SUMMARY | 2025-02-15 14:37 | XMS_ITS | Encounter Summary ---
Author Organization [facility] Address [address] [facility] [address] [place] [address] Phone Care Team Providers Care Inspector Welded Parts Name Role Phone Dylan Tomas MD Primary Care Provider + Encounter Details Date Type Department Care Team (Late st Contact Info) Description 12/01/[address] [facility] [address] [place] [address] Social History Tobacco Use Types Packs/Day Years Used Date Smoking Tobacco: Former Cigarettes 2 20 0 12/30/1994 - 12/30/2014 Smokeless Tobacco: Never Comments:none since October 2017 Alcohol Use Standard Drinks/Week Comments Yes 0 [...] documented as of this encounter Care Teams Inspector Welded Parts Relationship Specialty Start Date End Date Dylan Tomas MD [address] [place] [phone] PCP - General Internal Medicine 12/09/14 documented as of this encounter Additional Source Comments The information contained in this document represents components of the legal health record. It is not the complete legal health record.[facility]
--- OUTSIDE RECORDS SUMMARY | 2025-02-15 14:37 | XMS_ITS | Encounter Summary ---
Author Organization [facility] Address [address] [facility] [address] [place] [address] Phone Care Team Providers Care Board Certified Behavioral Analyst Name Role Phone Dylan Tomas MD Primary Care Provider + Encounter Details Date Type Department Care Team (Latest Contact Info) Description 12/09/2014 Transcribe Orders [facility]iology [address] [place] [address] Amauri Dickey [address] [phone] [email or web address] Carcinoma of bladder (Primary Dx) Social History Tobacco Use Types Packs/Day Years Used Date Smoking Tobacco: Every Day Alcohol Use Standard Drinks/Week Comments Not Asked 0 (1 standard drink = 0.6 oz pur e alcohol) Sex and Gender Information Value Date Recorded Sex Assigned at Male 06/23/2017 9:29 AM EST Legal Sex Male 6:59 PM EST Gender Identity Male Sexual Orientation Straight documented as of this encounter Plan of Treatment Pending Results Name Type Priority Associated Diagnoses Date /Time CT 3D Reconstruction Abdomen and Pelvis Imaging Routine Carcinoma of bladder 12/09/2014 1:02 PM EDT Scheduled Orders Name Type Priority Associated Diagnoses Orde r Schedule CT 3D Reconstruction Abdomen and Pelvis Imaging Routine Carcinoma of bladder Expected: 12/09/2014, Expires: 12/10/2015 documented as of this encounter Visit Diagnoses Diagnosis Carcinoma of bladder- Primary Malignant neoplasm of bladder, part unspecified documented in this encounter Care Teams Board Certified Behavioral Analyst Relationship Specialty Start Date End Date Dylan Tomas MD [address] [place] [phone] PCP - General Internal Medicine 12/09/14 documented as of this encounter Additional Source Comments The information contained in this document represents components of the legal health record. It is not the complete legal health record.[facility]
--- OUTSIDE RECORDS SUMMARY | 2025-02-15 14:37 | XMS_ITS | Encounter Summary ---
Author Organization [facility] Address [address] [facility] [address] [place] [address] Phone Care Team Providers Care Municipal Court Judge Name Role Phone Dylan Tomas MD Primary Care Provider + Encounter Details Date Type Department Care Team (Late st Contact Info) Description 12/24/2017 Procedure Pass [facility] [address] [place] [address] Social History Tobacco Use Types Packs/Day Years [...] documented as of this encounter Care Teams Municipal Court Judge Relationship Specialty Start Date End Date Dylan Tomas MD [address] [place] [phone] PCP - General Internal Medicine 12/09/14 documented as of this encounter Additional Source Comments The information contained in this document represents components of the legal health record. It is not the complete legal health record.[facility]
--- OUTSIDE RECORDS SUMMARY | 2025-02-15 14:37 | XMS_ITS | Encounter Summary ---
Author Organization [facility] Address [address] [facility] [address] [place] [address] Phone Care Team Providers Care Ophthalmology Surgical Technician Name Role Phone Dylan Tomas MD Primary Care Provider + Reason for Visit * Reason Onset Date Comments Medication Refill 11/02/2018 PT is requesti ng a Urostomy waffers and urostomy pouches order to be sent. [facility] , fax # [phone] Encounter Details Date Type Department Care Team (Late st Contact Info) Description 11/02/2018 Telephone [facility]'[address] [id number] Jenifer [email or web address] Medication Refill (PT is requesting a Urostomy waffers and urostomy pouches order to be sent. [facility] , fax # [phone]) Social History Tobacco Use Types Packs/Day Years [...] documented as of this encounter Care Teams Ophthalmology Surgical Technician Relationship Specialty Start Date End Date Dylan Tomas MD [address] [place] [phone] PCP - General Internal Medicine 12/09/14 documented as of this encounter Additional Source Comments The information contained in this document represents components of the legal health record. It is not the complete legal health record.[facility]
--- OUTSIDE RECORDS SUMMARY | 2025-02-15 14:37 | XMS_ITS | Encounter Summary ---
Author Organization [facility] Address [address] [facility] [address] [place] [address] Phone Care Team Providers Care Oil Spreader Operator Name Role Phone Dylan Tomas MD Primary Care Provider + Encounter Details Date Type Department Care Team (Late st Contact Info) Description 12/01/2017 Procedure Pass [facility] Periop [address] [place] [address] Social History Tobacco Use Types Packs/Day Years [...] documented as of this encounter Care Teams Oil Spreader Operator Relationship Specialty Start Date End Date Dylan Tomas MD [address] [place] [phone] PCP - General Internal Medicine 12/09/14 documented as of this encounter Additional Source Comments The information contained in this document represents components of the legal health record. It is not the complete legal health record.[facility]
--- OUTSIDE RECORDS SUMMARY | 2025-02-15 14:37 | XMS_ITS | Encounter Summary ---
Author Organization [facility] Address [address] [facility] [address] [place] [address] Phone Care Team Providers Care Endocrinology Physician Name Role Phone Dylan Tomas MD Primary Care Provider + Encounter Details Date Type Department Care Team (Late st Contact Info) Description 01/13/2015 Telephone [facility] Angio Interventional Radiology [address] [place] [address] Namrata Lyman, LUIS M [address] [place] [phone] [email or web address] Social History Tobacco Use Types Packs/Day Years [...] on filedocumented in this encounter Care Teams Endocrinology Physician Relationship Specialty Start Date End Date Dylan Tomas MD [address] [place] [phone] PCP - General Internal Medicine 12/09/14 documented as of this encounter Additional Source Comments The information contained in this document represents components of the legal health record. It is not the complete legal health record.[facility]
--- OUTSIDE RECORDS SUMMARY | 2025-02-15 14:37 | XMS_ITS | Encounter Summary ---
Author Organization [facility] Address [address] [facility] [address] [place] [address] Phone Care Team Providers Care Manager Personal Name Role Phone Dylan Tomas MD Primary Care Provider + Encounter Details Date Type Department Care Team ([facility] st Contact Info) Description 08/03/2024 Procedure Pass [facility] [address] [facility] [address] [place] [address] Social History Tobacco Use Types Packs/Day Years [...] documented as of this encounter Care Teams Manager Personal Relationship Specialty Start Date End Date Dylan Tomas MD [address] [place] [phone] PCP - General Internal Medicine 12/09/14 documented as of this encounter Additional Source Comments The information contained in this document represents components of the legal health record. It is not the complete legal health record.[facility]
--- OUTSIDE RECORDS SUMMARY | 2025-02-15 14:37 | XMS_ITS | Encounter Summary ---
Author Organization [facility] Address [address] [place] [address] Phone Care Team Providers Care Warehouse Associate Name Role Phone Dylan Tomas MD Primary Care Provider + Reason for Referral * MRI/CAT Scan - Closed Specialty Diagnoses / Procedures Referred By Ana tovar Referred To Contact Radiology Diagnoses 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 Procedures CT 3D Reconstruction Abdomen and Pelvis Van Macias MD Phone: tel: fax: mailto:[email or web address] Referral ID Status Reason Start Date Expiration Date Visits Re quested Visits Authorized [id number] Closed 06/12/2018 06/12/2019 1 1 Encounter Details Date Type Department Care Team (Late st Contact Info) Description 06/12/2018 Ancillary Orders [facility] Urology [address] [place], [place] [id number] [place] [address] Van Macias MD [address] [place] [address] [address] [place] [address] [email or web address] 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 Social History Tobacco Use Types Packs/Day Years [...] Entry Date Author No 01/04/2015 12:22 PM OUMOUT Kaiser Charles PA documented in this encounter Plan of Treatment Not on file documented as of this encounter Results * CT 3D Reconstruction Abdomen and Pelvis (06/12/2018 11:46 AM EST) Anatomical Region Laterality Modality Abdomen, Pelvis Computed Tomogra phy 06/12/2018 11:4 6 AM EST Impressions 06/12/2018 4:19 PM EST 1. Mild persistent wall thickening and enhancement of the bilateral ureters, likely related to chronic reflux of infected urine, pyeloureteritis, or changes due to passed stones. No ureteral calculus. 2. Interval resolution of right-sided hydronephrosis. Chronic left hydronephrosis with tissue loss particularly in the upper pole 3. Bilateral nephrolithiasis. 3. No evidence of metastatic bladder cancer. 4. Cholelithiasis. ATTESTATION: Keyur Rueda, as teaching physician have reviewed the images, if any, for this patient's exam, and if necessary, have edited the report originally created by Nathan Shannon. Narrative 06/12/2018 4:19 PM EST Reason for exam (per EHR order): * HEMATURIA, GROSS Additional clinical information obtained from the EHR: History of bladder cancer status post radical cystectomy several years ago and nephrolithiasis, recent admission with urosepsis due to obstructing ureteral calculus TECHNIQUE: CT scan of abdomen and pelvis was obtained before and after the administration of intravenous contrast using the CT urography protocol. Oral contrast: Water. Intravenous contrast: 100 mL of Omnipaque 350. Other medications: 200 mL of intravenous saline. 3D IMAGES: Maximum-intensity projection images (MIP) were performed on an independent dedicated workstation by a technologist in a 3D lab that is monitored by a physician to evaluate the collecting system, ureters, and ileal conduit. COMPARISON: CT abdomen pelvis dated 10/25/2017, CT urogram dated 12/01/2015 FINDINGS: Lower Chest: Multifocal groundglass opacities, mild bronchial wall thickening and bronchiolectasis. Liver: Multiple low-attenuation lesions within the liver, measuring up to 11 mm in segment 5, unchanged and likely cysts, although subcentimeter lesions are too small to characterize. Biliary System: No biliary ductal dilatation. Gallbladder is partially distended with layering sludge and stones but no wall thickening Pancreas: Normal contour. No ductal dilatation. Spleen: Not enlarged. No focal lesion. Adrenal Glands: Unchanged bilateral 1 cm nodules, previously characterized as adenomas. Kidneys: Multiple coarse stones are seen bilaterally, largest a calyceal stones measuring to 11 mm in the inferior pole of the left kidney. There is bilateral renal parenchymal scarring, left worse than right with chronic left hydronephrosis. Renal Collecting Systems, Ureters, and Bladder: The collecting systems and ureters are well-opacified. No urothelial stricture. Mild bilateral hydroureter, wall thickening and enhancement of the renal collecting systems and ureters, left more so than right, similar to prior study, likely related to chronic reflux and pyelitis. No ureteral calculus. 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 Bowel: No wall thickening or dilatation. Right lower quadrant ileal conduit. Mesentery, Omentum, and Peritoneum: No pneumoperitoneum or ascites. Pelvic Organs Other Than Bladder: Status post cystoprostatectomy. Lymph Nodes: No lymphadenopathy. Vasculature: No abdominal aortic aneurysm. Moderate atherosclerosis. Bones and Soft Tissues: No destructive osseous lesions. Parastomal hernia right lower quadrant. Bilateral fat-containing inguinal hernias. Degenerative changes bilateral hips. Sclerotic lesion at L5, likely benign bone island. Multilevel degenerative changes in the lower thoracic and lumbar spine without aggressive osseous lesion. Procedure Note Keyur Mcdaniels MD - 06/22/2018 Reason for exam (per EHR order): * HEMATURIA, GROSS Additional clinical information obtained from the EHR: History of bladder cancer status post radical cystectomy several years ago and nephrolithiasis, recent admission with urosepsis due to obstructing ureteral calculus TECHNIQUE: CT scan of abdomen and pelvis was obtained before and after the administration of intravenous contrast using the CT urography protocol. Oral contrast: Water. Intravenous contrast: 100 mL of Omnipaque 350. Other medications: 200 mL of intravenous saline. 3D IMAGES: Maximum-intensity projection images (MIP) were performed on an independent dedicated workstation by a technologist in a 3D lab that is monitored by a physician to evaluate the collecting system, ureters, and ileal conduit. COMPARISON: CT abdomen pelvis dated 10/25/2017, CT urogram dated 12/01/2015 FINDINGS: Lower Chest: Multifocal groundglass opacities, mild bronchial wall thickening and bronchiolectasis. Liver: Multiple low-attenuation lesions within the liver, measuring up to 11 mm in segment 5, unchanged and likely cysts, although subcentimeter lesions are too small to characterize. Biliary System: No biliary ductal dilatation. Gallbladder is partially distended with layering sludge and stones but no wall thickening Pancreas: Normal contour. No ductal dilatation. Spleen: Not enlarged. No focal lesion. Adrenal Glands: Unchanged bilateral 1 cm nodules, previously characterized as adenomas. Kidneys: Multiple coarse stones are seen bilaterally, largest a calyceal stones measuring to 11 mm in the inferior pole of the left kidney. There is bilateral renal parenchymal scarring, left worse than right with chronic left hydronephrosis. Renal Collecting Systems, Ureters, and Bladder: The collecting systems and ureters are well-opacified. No urothelial stricture. Mild bilateral hydroureter, wall thickening and enhancement of the renal collecting systems and ureters, left more so than right, similar to prior study, likely related to chronic reflux and pyelitis. No ureteral calculus. 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 Bowel: No wall thickening or dilatation. Right lower quadrant ileal conduit. Mesentery, Omentum, and Peritoneum: No pneumoperitoneum or ascites. Pelvic Organs Other Than Bladder: Status post cystoprostatectomy. Lymph Nodes: No lymphadenopathy. Vasculature: No abdominal aortic aneurysm. Moderate atherosclerosis. Bones and Soft Tissues: No destructive osseous lesions. Parastomal hernia right lower quadrant. Bilateral fat-containing inguinal hernias. Degenerative changes bilateral hips. Sclerotic lesion at L5, likely benign bone island. Multilevel degenerative changes in the lower thoracic and lumbar spine without aggressive osseous lesion. IMPRESSION: 1. Mild persistent wall thickening and enhancement of the bilateral ureters, likely related to chronic reflux of infected urine, pyeloureteritis, or changes due to passed stones. No ureteral calculus. 2. Interval resolution of right-sided hydronephrosis. Chronic left hydronephrosis with tissue loss particularly in the upper pole 3. Bilateral nephrolithiasis. 3. No evidence of metastatic bladder cancer. 4. Cholelithiasis. ATTESTATION: Keyur Rueda, as teaching physician have reviewed the images, if any, for this patient's exam, and if necessary, have edited the report originally created by Nathan Shannon. Van Macias MD IMG CT Final Result documented in this encounter Visit Diagnoses Diagnosis 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 documented in this encounter Additional Health Concerns Assessment Noted Time PHQ-2 Depression Total Score: 0 11/06/19 18 4:02 PM EDT documented as of this encounter Care Teams Warehouse Associate Relationship Specialty Start Date End Date Dylan Tomas MD [address] [place] [phone] PCP - General Internal Medicine 12/09/14 documented as of this encounter Additional Source Comments The information contained in this document represents components of the legal health record. It is not the complete legal health record.[facility]
--- OUTSIDE RECORDS SUMMARY | 2025-02-15 14:37 | XMS_ITS | Encounter Summary ---
Author Organization [facility] Address [address] [place] [address] Phone Care Team Providers Care Primary Health Care Nurse Name Role Phone Dylan Tomas MD Primary Care Provider + Encounter Details Date Type Department Care Team (Late st Contact Info) Description 02/28/2020 Procedure Pass [facility] [address] [place] [address] Social History Tobacco Use Types Packs/Day Years [...] documented as of this encounter Care Teams Primary Health Care Nurse Relationship Specialty Start Date End Date Dylan Tomas MD [address] [place] [address] PCP - General Internal Medicine 12/09/14 documented as of this encounter Additional Source Comments The information contained in this document represents components of the legal health record. It is not the complete legal health record.[facility]
[2025-02-15 14:49] VITALS: BP 130/60
== END 2025-02-15 14:57 | disposition home or self-care (01) ==
LOC: HO.HMCFM 13:21
PROVIDERS: PCP Nurse Practitioner Family; Visit Provider Nurse Practitioner Family
DX: J44.9 Chronic obstructive pulmonary disease, unspecified (principal); Z98.890 Other specified postprocedural states

== ENCOUNTER → 2025-02-15 13:20 | Outpatient (BNVA) | payer MEDICARE, SELFPAY | PROVIDERS: PCP Nurse Practitioner Family; Visit Provider Nurse Practitioner Family | DX: Z00.00 Encounter for general adult medical examination without abnormal findings (principal); Z76.89 Persons encountering health services in other specified circumstances; J44.9 Chronic obstructive pulmonary disease, unspecified; Z98.890 Other specified postprocedural states; Z79.899 Other long term (current) drug therapy; Z85.51 Personal history of malignant neoplasm of bladder | CPT/HCPCS: 96127; 99202 ==

== ENCOUNTER 2025-02-18 09:35 | Outpatient (REF) | payer MEDICARE, SELFPAY ==
--- OUTSIDE RECORDS SUMMARY | 2025-02-18 10:18 | XMS_ITS | Encounter Summary ---
Author Organization [facility] Address [address] [facility] [address] [place] [address] Phone Care Team Providers Care Vacuum Tank Tender Name Role Phone Dylan Tomas MD Primary Care Provider + Encounter Details Date Type Department Care Team (Latest Contact Info) Description 04/18/2015 Transcribe Orders [facility]iology [address] [place] [address] Amauri Dickey [address] [place], [place] [id number] [email or web address] Gross hematuria (Primary Dx) Social History Tobacco [...] Primary documented in this encounter Care Teams Vacuum Tank Tender Relationship Specialty Start Date End Date Dylan Tomas MD [address] [place] [address] PCP - General Internal Medicine 12/09/14 documented as of this encounter Additional Source Comments The information contained in this document represents components of the legal health record. It is not the complete legal health record.[facility]
--- OUTSIDE RECORDS SUMMARY | 2025-02-18 10:18 | XMS_ITS | Encounter Summary ---
Author Organization [facility] Address [address] [address] [address] [place] [address] Phone Care Team Providers Care Senior Hadoop Developer Name Role Phone Dylan Tomas MD Primary Care Provider + Encounter Details Date Type Department Care Team (Late st Contact Info) Description 09/16/2024 Procedure Pass [facility] Periop [address] [place] [address] Social History Tobacco Use Types Packs/Day Years [...] documented as of this encounter Care Teams Senior Hadoop Developer Relationship Specialty Start Date End Date Dylan Tomas MD [address] [place] [phone] PCP - General Internal Medicine 12/09/14 documented as of this encounter Additional Source Comments The information contained in this document represents components of the legal health record. It is not the complete legal health record.[facility]
--- OUTSIDE RECORDS SUMMARY | 2025-02-18 10:18 | XMS_ITS | Encounter Summary ---
Author Organization [facility] Address [address] [facility] [address] [address] [place] [address] Phone Care Team Providers Care Financial Services Consultant Name Role Phone Dylan Tomas MD Primary Care Provider + Encounter Details Date Type Department Care Team (Latest Contact Info) Description 12/01/2015 Transcribe Orders [facility] [address] [place] [address] Amauri Dickey [address] [id number] [email or web address] Gross hematuria (Primary Dx) Social History [...] Primary documented in this encounter Care Teams Financial Services Consultant Relationship Specialty Start Date End Date Dylan Tomas MD [address] [place] [phone] PCP - General Internal Medicine 12/09/14 documented as of this encounter Additional Source Comments The information contained in this document represents components of the legal health record. It is not the complete legal health record.[facility]
--- OUTSIDE RECORDS SUMMARY | 2025-02-18 10:19 | XMS_ITS | Encounter Summary ---
Author Organization [facility] Address [address] [facility] [place] [address] Phone Care Team Providers Care Electrical Tryout Person Name Role Phone Dylan Tomas MD Primary Care Provider + Encounter Details Date Type Department Care Team (Late st Contact Info) Description 09/16/2024 Procedure Pass [facility] [address] [place] [address] Social History Tobacco Use Types Packs/Day Years [...] documented as of this encounter Care Teams Electrical Tryout Person Relationship Specialty Start Date End Date Dylan Tomas MD [address] [place] [phone] PCP - General Internal Medicine 12/09/14 documented as of this encounter Additional Source Comments The information contained in this document represents components of the legal health record. It is not the complete legal health record.[facility]
--- OUTSIDE RECORDS SUMMARY | 2025-02-18 10:19 | XMS_ITS | Clinical Summary ---
Author Organization [facility] Address [address] [facility] [address] [place] [address] Phone Care Team Providers Care Architectural Design Professor Name Role Phone Dylan Tomas MD Primary [...] urinary bladder, unspecified site [employer] ([id number]) Dx code(s): Z90.6 (Hx of radical cystectomy) [...] O2 sat 90-91%, f[facility] [phone]; last hosp 12/2023 i/s/o COVID/ sepsis Resolved [...] Type Department Care Team Description 12/29/2024 Telephone [facility] Urology [address] [address] [place] [address] Mike Casarez 12/29/2024 Orders Only [facility] Urology [address] [address] [place] [address] Mike Casarez 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 (Primary Dx); Flank pain 12/28/2024 5:30 PM EDT Telemedicine - audio only [facility] Urology [address] [facility] [address] [place] [address] Van Macias MD History of bladder cancer (Primary Dx); 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 12/16/2024 12:56 PM EDT - 12/16/2024 11:59 PM EDT Hospital Encounter [facility], [address] [address] Van Macias MD Discharge Disposition: Home or Self Care 08/16/2024 Procedure Pass [facility], [address] [address] from Last 3 Months Immunizations Immunization Administration [...] this topic Medical Devices Implanted Type Area Barrel Loader And Cleaner Device Identifier Shelf Expiration Date Model / Serial / Lot Stent Ureteral 28cmx8.5fr Lub Flx Op Silicone - [id number] Implanted:Qty : 1 on 12/01/2017 by Van Macias MD at [facility] STANDARD OLYMPUS CHAD 06/14/2017 [id number] / / [id number] Stent Urological 7fr 30cm Double Pigtail Taper Tip Threaded Hydroplus Coated Percuflex Radiopaque Y - [id number] Implanted:Qty : 1 on 09/16/2024 by Van Macias MD at [facility] Ureteral Stent Right: Ureter Cadigo MAREK [id number] 06/27/2026 [id number] / / [id number] Urostomy Right Ptn Procedures Procedure Name Priority [...] clinician's provided indication for this examination in [facility]: *Flank pain, kidney stone suspected TECHNIQUE: Multidetector-row [...] Months Insurance MEDICARE PART A & B [employer] MEDEX SUPPLEMENT MEDICARE PART A & B [employer] MEDEX SUPPLEMENT MEDICARE PART A & B [employer] MEDEX SUPPLEMENT MEDICARE PART A & B [employer] MEDEX SUPPLEMENT MEDICARE PART A & B [employer] MEDEX SUPPLEMENT MEDICARE PART A & B [employer] MEDEX SUPPLEMENT MEDICARE PART A & B [facility] MEDEX SUPPLEMENT MEDICARE PART A & B [employer] MEDEX SUPPLEMENT MEDICARE PART A & B [employer] MEDEX SUPPLEMENT Advance Directives For more information, please contact: [phone] (9AM - 5PM [facility], Friday-Friday) Documents on File Type Date Recorded Patient Flap Lining Binder Expl anation Healthcare Proxy 01/05/2015 2:15 PM [...] 8:23 PM 01/04/2015 6:59 PM Care Teams Architectural Design Professor Relationship Specialty Start Date End Date Dylan Tomas MD [address] [place] [phone] PCP - General Internal Medicine 12/09/14 Additional Source Comments The information contained in this document represents components of the legal health record. It is not the complete legal health record.[facility]
--- OUTSIDE RECORDS SUMMARY | 2025-02-18 10:19 | XMS_ITS | Encounter Summary ---
Author Organization [facility] Address [address] [facility] [address] [place] [address] Phone Care Team Providers Care Machine Compositor Name Role Phone Dylan Tomas MD Primary Care Provider + Encounter Details Date Type Department Care Team (Late st Contact Info) Description 08/16/2024 Procedure Pass [facility], Ct Scan - [address] [address] Social History Tobacco Use Types Packs/Day Years [...] documented as of this encounter Care Teams Machine Compositor Relationship Specialty Start Date End Date Dylan Tomas MD [address] [place] [address] PCP - General Internal Medicine 12/09/14 documented as of this encounter Additional Source Comments The information contained in this document represents components of the legal health record. It is not the complete legal health record.[facility]
--- OUTSIDE RECORDS SUMMARY | 2025-02-18 10:20 | XMS_ITS | Encounter Summary ---
Author Organization [facility] Address [address] [facility] [address] [place] [address] Phone Care Team Providers Care Ear Nose Throat Surgeon Name Role Phone Dylan Tomas MD Primary Care Provider + Encounter Details Date Type Department Care Team (Late st Contact Info) Description 12/01/2017 Procedure Pass [facility] Periop [address] [place] [address] Social History Tobacco Use Types Packs/Day Years [...] documented as of this encounter Care Teams Ear Nose Throat Surgeon Relationship Specialty Start Date End Date Dylan Tomas MD [address] [place] [phone] PCP - General Internal Medicine 12/09/14 documented as of this encounter Additional Source Comments The information contained in this document represents components of the legal health record. It is not the complete legal health record.[facility]
--- OUTSIDE RECORDS SUMMARY | 2025-02-18 10:20 | XMS_ITS | Encounter Summary ---
Author Organization [facility] Address [address] [facility] [address] [place] [address] Phone Care Team Providers Care Investigator Cash Shortage Name Role Phone Dylan Tomas MD Primary Care Provider + Encounter Details Date Type Department Care Team (Late st Contact Info) Description 01/16/2015 Telephone [facility] Angio Interventional Radiology [address] [place] [address] Lynette Apple RN Social History Tobacco Use [...] Assessment Author No 01/04/2015 12:22 PM EDT Kaiesr Charles PA * Patient has serious difficulty [...] on filedocumented in this encounter Care Teams Investigator Cash Shortage Relationship Specialty Start Date End Date Dylan Tomas MD [address] [place] [phone] PCP - General Internal Medicine 12/09/14 documented as of this encounter Additional Source Comments The information contained in this document represents components of the legal health record. It is not the complete legal health record.[facility]
--- OUTSIDE RECORDS SUMMARY | 2025-02-18 10:20 | XMS_ITS | Encounter Summary ---
Author Organization [facility] Address [address] [facility] [address] [place] [address] Phone Care Team Providers Care Management Coordinator Name Role Phone Dylan Tomas MD Primary Care Provider + Encounter Details Date Type Department Care Team (Late st Contact Info) Description 12/24/2017 Procedure Pass [facility] [address] [place] [address] Social History Tobacco Use Types Packs/Day Years [...] documented as of this encounter Care Teams Management Coordinator Relationship Specialty Start Date End Date yDlan Tomas MD [address] [place] [phone] PCP - General Internal Medicine 12/09/14 documented as of this encounter Additional Source Comments The information contained in this document represents components of the legal health record. It is not the complete legal health record.[facility]
--- OUTSIDE RECORDS SUMMARY | 2025-02-18 10:20 | XMS_ITS | Encounter Summary ---
Author Organization [facility] Address [address] [facility] [address] [place] [address] Phone Care Team Providers Care Money Order Clerk Name Role Phone Dylan Tomas MD Primary Care Provider + Encounter Details Date Type Department Care Team (Late st Contact Info) Description 10/25/2017 Procedure Pass [facility] [address] [place] [address] Social History Tobacco Use Types Packs/Day Years [...] on filedocumented in this encounter Care Teams Money Order Clerk Relationship Specialty Start Date End Date Dylan Tomas MD [address] [place] [phone] PCP - General Internal Medicine 12/09/14 documented as of this encounter Additional Source Comments The information contained in this document represents components of the legal health record. It is not the complete legal health record.[facility]
--- OUTSIDE RECORDS SUMMARY | 2025-02-18 10:20 | XMS_ITS | Encounter Summary ---
Author Organization [facility] Address [address] [facility] [address] [place] [address] Phone Care Team Providers Care Excavating Contractor Name Role Phone Dylan Tomas MD Primary Care Provider + Encounter Details Date Type Department Care Team (Late st Contact Info) Description 01/13/2015 Telephone [facility] Angio Interventional Radiology [address] [place] [address] Namrata Lyman, LUIS M [address] [place] [address] [email or web address] Social History Tobacco Use Types Packs/Day Years [...] on filedocumented in this encounter Care Teams Excavating Contractor Relationship Specialty Start Date End Date Dylan Tomas MD [address] [place] [address] PCP - General Internal Medicine 12/09/14 documented as of this encounter Additional Source Comments The information contained in this document represents components of the legal health record. It is not the complete legal health record.[facility]
--- OUTSIDE RECORDS SUMMARY | 2025-02-18 10:20 | XMS_ITS | Encounter Summary ---
Author Organization [facility] Address [address] [facility] [address] [place] [address] Phone Care Team Providers Care Wildlife Conservation Professor Name Role Phone Dylan Tomas MD Primary Care Provider + Encounter Details Date Type Department Care Team (Latest Contact Info) Description 12/09/2014 Transcribe Orders [facility] [address] [place] [address] Amauri Dickey [address] [phone] [email or web address] Carcinoma of bladder (Primary Dx) Social History [...] unspecified documented in this encounter Care Teams Wildlife Conservation Professor Relationship Specialty Start Date End Date Dylan Tomas MD [address] [place] [phone] PCP - General Internal Medicine 12/09/14 documented as of this encounter Additional Source Comments The information contained in this document represents components of the legal health record. It is not the complete legal health record.[facility]
--- OUTSIDE RECORDS SUMMARY | 2025-02-18 10:20 | XMS_ITS | Encounter Summary ---
Author Organization [facility] Address [address] [facility] [address] [place] [address] Phone Care Team Providers Care Programming Development Project Manager Name Role Phone Dylan Tomas MD Primary Care Provider + Encounter Details Date Type Department Care Team (Late st Contact Info) Description 12/01/2017 Procedure Pass [facility] [address] [place] [address] Social History Tobacco Use Types Packs/Day Years [...] documented as of this encounter Care Teams Programming Development Project Manager Relationship Specialty Start Date End Date Dylan Tomas MD [address] [place] [address] PCP - General Internal Medicine 12/09/14 documented as of this encounter Additional Source Comments The information contained in this document represents components of the legal health record. It is not the complete legal health record.[facility]
--- OUTSIDE RECORDS SUMMARY | 2025-02-18 10:20 | XMS_ITS | Encounter Summary ---
Author Organization [facility] Address [address] [facility] [address] [place] [address] Phone Care Team Providers Care Law Secretary Name Role Phone Dylan Tomas MD Primary Care Provider + Encounter Details Date Type Department Care Team (Late st Contact Info) Description 02/28/2020 Procedure Pass [facility] [address] [place] [address] Social History Tobacco Use Types Packs/Day Years [...] documented as of this encounter Care Teams Law Secretary Relationship Specialty Start Date End Date Dylan Tomas MD [address] [place] [address] PCP - General Internal Medicine 12/09/14 documented as of this encounter Additional Source Comments The information contained in this document represents components of the legal health record. It is not the complete legal health record.[facility]
--- OUTSIDE RECORDS SUMMARY | 2025-02-18 10:21 | XMS_ITS | Encounter Summary ---
Author Organization [facility] Address [address] [facility] [address] [place] [address] Phone Care Team Providers Care Rn Digestive Name Role Phone Dylan Tomas MD Primary Care Provider + Encounter Details Date Type Department Care Team ([facility] st Contact Info) Description 08/03/2024 Procedure Pass [facility] [address] [facility] [address] [place] [address] Social History Tobacco Use Types Packs/Day Years [...] documented as of this encounter Care Teams Rn Digestive Relationship Specialty Start Date End Date Dylan Tomas MD [address] [place] [address] PCP - General Internal Medicine 12/09/14 documented as of this encounter Additional Source Comments The information contained in this document represents components of the legal health record. It is not the complete legal health record.[facility]
--- OUTSIDE RECORDS SUMMARY | 2025-02-18 10:21 | XMS_ITS | Encounter Summary ---
Author Organization [facility] Address [address] [facility] [address] [place] [address] Phone Care Team Providers Care Psychology Instructor Name Role Phone Dylan Tomas MD Primary Care Provider + Reason for Referral * MRI/CAT Scan - Closed Specialty Diagnoses / Procedures Referred By Ana tovar Referred To Contact Radiology Diagnoses 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 Procedures CT 3D Reconstruction Abdomen and Pelvis Van Macias MD Phone: tel: fax: [email or web address] Referral ID Status Reason Start Date Expiration Date Visits Re quested Visits Authorized [id number] Closed 06/12/2018 06/12/2019 1 1 Encounter Details Date Type Department Care Team (Late st Contact Info) Description 06/12/2018 Ancillary Orders [facility] Urology [address] [place], [place] [address] [place] [address] Van Macias MD [address] [place] [address] [address] [place] [address] [email or web address] 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 [...] documented as of this encounter Care Teams Psychology Instructor Relationship Specialty Start Date End Date Dylan Tomas MD [address] [place] [address] PCP - General Internal Medicine 12/09/14 documented as of this encounter Additional Source Comments The information contained in this document represents components of the legal health record. It is not the complete legal health record.[facility]
--- OUTSIDE RECORDS SUMMARY | 2025-02-18 10:21 | XMS_ITS | Encounter Summary ---
Author Organization [facility] Address [address] [facility] [address] [place] [address] Phone Care Team Providers Care Pattern Clerk Name Role Phone Dylan Tomas MD Primary Care Provider + Reason for Visit * Reason Onset Date Comments Medication Refill 11/02/2018 PT is requesti ng a Urostomy waffers and urostomy pouches order to be sent. [facility] , fax # [phone] Encounter Details Date Type Department Care Team (Late st Contact Info) Description 11/02/2018 Telephone [facility] [phone] Jenifer [email or web address] Medication Refill (PT is requesting a Urostomy waffers and urostomy pouches order to be sent. [facility] , fax # [phone]) Social History Tobacco Use Types Packs/Day Years [...] documented as of this encounter Care Teams Pattern Clerk Relationship Specialty Start Date End Date Dylan Tomas MD [address] [place] [address] PCP - General Internal Medicine 12/09/14 documented as of this encounter Additional Source Comments The information contained in this document represents components of the legal health record. It is not the complete legal health record.[facility]
[2025-02-18 11:12] LABS: MANUAL DIFF FLAG NO
[2025-02-18 11:14] LABS: Appearance Urine Cloudy; Glucose Urine UA Negative (Negative); PH 7.5 (5.0-9.0); Specific Gravity - Urine 1.015 (1.005-1.025); UMIC TRIGGER UACC YES
[2025-02-18 11:24] LABS: Hematocrit 43.3 % (42.0-52.0); Hemoglobin 13.9 g/dl (14.0-18.0); Imm Gran Abs Auto 0.06 X10*3/uL (0.00-0.03); Imm Gran Pct Auto 0.5 % (0.0-0.4); Lymphocytes Absolute Auto 1.0 X10*3/uL (1.2-4.9); Mean Corpuscular HGB Conc 32.1 g/dl (31.0-36.0); Mean Corpuscular Hemoglobin 29.3 pg (27.0-33.0); Mean Corpuscular Volume 91.2 fL (80.0-98.0); NRBC Abs Auto 0.000 X10*3/uL (0.0-0.012); NRBC Pct Auto 0.0 /100WBC (0.0-0.2); Platelet Count 184 X10*3/uL (160-400); Red Blood Count 4.75 X10*6/uL (4.60-5.80); White Blood Count 10.9 X10*3/uL (4.8-10.8)
[2025-02-18 11:26] LABS: UACC Culture Trigger YES
[2025-02-18 12:13] LABS: Microalbum/Creatinine Ratio Ur 1318.0 ug/mg cr (<30)
[2025-02-18 14:58] LABS: Alanine Aminotransferase 14 U/L (0-40); Albumin Level 4.2 g/dL (3.5-5.0); Alkaline Phosphatase 72 U/L (39-117); Anion Gap 13 (12-20); Aspartate Amino Transferase 28 U/L (5-37); Blood Urea Nitrogen 20 mg/dL (9-16); Calcium 9.6 mg/dL (8.4-10.2); Carbon Dioxide 26 mmol/L (22-29); Chloride 108 mmol/L (96-108); Cholesterol 140 mg/dL (<200); Estimated Glomerular Filt Rate > 60; HDL Cholesterol 43 mg/dL (>40); Potassium 4.6 mmol/L (3.3-5.1); Sodium 142 mmol/L (135-145); Total Protein 7.9 g/dL (6.5-8.0); Triglycerides 80 mg/dL (<150)
[2025-02-25 00:54] LABS: PSA, Ultra Sensitive <0.02 ng/mL
== END 2025-02-18 09:36 | disposition home or self-care (01) ==
LOC: HO.WFDLDS 09:35
PROVIDERS: Visit Provider Nurse Practitioner Family
DX: Z00.00 Encounter for general adult medical examination without abnormal findings (principal); Z12.5 Encounter for screening for malignant neoplasm of prostate; Z13.6 Encounter for screening for cardiovascular disorders; Z13.29 Encounter for screening for other suspected endocrine disorder; Z13.21 Encounter for screening for nutritional disorder
CPT/HCPCS: 36415; 80053; 80061; 81001; 82043; 82306; 82570; 84153; 84443; 85025; 87086; 87088; 87186

== ENCOUNTER 2025-03-08 15:06 | Outpatient (AMB) | payer MEDICARE, SELFPAY ==
--- NOTE | 2025-03-08 14:57 | A.OFFPC_ITS ---
Intake Visit Reasons: Tele 2-4 wks labs review Intake Note: patient here for 2-4 wks Telehealth follow up on lab review White Hat Hacker Required: No Allergies nitrofurantoin Allergy (Severe, Verified 03/08/25 14:58) Hives, felt hyper Tobacco use date assessed: 03/08/25 Fall risk assessment: No Falls in past year Last assessed Fall Risk: 03/08/25 Dental Screening Dental Screen Date: 03/08/25 Did you have a dental visit in the last 12 months?: No Did you have a dental problem in the last 6 months where you did not have access to dental care?: No Was dental information given to patient?: Patient has dentist HPI HPI Comments History of Present Illness Details 84-year-old male [facility] results. No acute symptoms at this time. [facility]LY [facility], [facility] Medical History (Updated 03/08/25 @ 15:18 by Cristopher Paulson CNP) Arthritis COPD (chronic obstructive pulmonary disease) Kidney stones Surgical History (Updated 02/15/25 @ 15:02 by Cristopher Paulson CNP) History of urostomy Social History (Updated 02/15/25 @ 14:10 by Hailey Costa MA) Housing: House Patient Tobacco Use Status: Never used Tobacco e-Cigarette/Vaping Use: Never Used Second Hand Smoke Exposure: No service: No Current occupational status: retired Cognitive needs: Yes Hearing needs: No Vision needs: No Questionnaire Thrive Questionnaire Date Thrive assessed: 02/15/25 BRUCE-7 AMB Questionnaire BRUCE-7 Date BRUCE - 7 assessed: 02/15/25 Source: Developed by Drs. Jose Alejandro Skinner, Anjelica Valdez, Saurabh Rosenthal and colleagues, with an educational radha from [employer]. Review of Systems Const Details: Denies chills, Denies fatigue, Denies fever(s), Denies headache(s) and Denies weakness Cardiac Denies chest pain, Denies claudication, Denies leg edema, Denies lightheadedness, Denies palpitations, Denies dyspnea, Denies dyspnea on exertion, Denies orthopnea and Denies other (Loss of consciousness) Resp Denies cough, Denies excessive phlegm production, Denies dyspnea, Denies dyspnea on exertion, Denies snoring and Denies wheezing Physical exam (Primary Care) Tobacco/Smoking Status: Tobacco use Status Tobacco use date assessed 03/08/25 03/08/25 15:01 Patient Tobacco Use Status Never used Tobacco 03/08/25 15:01 e-Cigarette/Vaping Use Never Used 03/08/25 15:01 Thrive Assessment: Date of Thrive Assessment Date Thrive assessed 02/15/25 03/08/25 15:01 Const Other: Patient is alert and oriented x3. Telehealth Telehealth Telehealth Platform: Telephone Location of provider rendering services: practice address Location of patient: address on file Patient Identification confirmed using: Name, : Yes Telehealth method: voice only Patient verbally consented to treatment: Yes Patient verbally consented to billing insurance company: Yes Patient informed of any privacy concerns related to visit: Yes Coding Level of Care Code Tele Est Pt Level 3 (52447) Diagnoses Elevated fasting glucose R73.01 UTI (urinary tract infection) N39.0 Microalbuminuria R80.9 Leukocytosis D72.829 Time Spent (min) 15 Assessment & Plan Assessment & Plan (1) Elevated fasting glucose: Code(s): R73.01 - Impaired fasting glucose Category: Medical Plan: Recent fasting glucose is elevated, 121. He drinks a qt of dariusz ramonita daily. Advised to cut down or avoid drinking dariusz ramonita or beverages that are high in sugar. Healthy diet and routine exercise encouraged. Will recheck fasting glucose and make changes as needed. Verbalized understanding and agreed with the plan. (2) UTI (urinary tract infection): Code(s): N39.0 - Urinary tract infection, site not specified Category: Medical Plan: Recent UA/culture revealed UTI. He was recently treated with amoxicillin and ciprofloxacin. Encouraged to repeat UA/culture to determine effectiveness of treatment. Verbalized understanding and agreed with plan. (3) Microalbuminuria: Code(s): R80.9 - Proteinuria, unspecified Category: Medical Plan: Recent urine microalbumin/creatinine ratio is significantly elevated, 1318.0. He drinks a quarter of dariusz ramonita daily. Advised to cut down on drinking beverages that are high in sugar. Adequate hydration with water encouraged. Will recheck urine microalbumin/creatinine ratio. Followed by urology. Verbalized understanding and agreed with the plan. (4) Leukocytosis: Code(s): D72.829 - Elevated white blood cell count, unspecified Category: Medical Plan: Recent WBC slightly elevated. Likely due to UTI. May have improved after completion of antibiotics. Will recheck WBC and make changes as needed. Verbalized understanding and agreed with the plan. Orders: Orders Glucose Fasting Today R73.01 - Impaired fasting glucose Microalbumin, Random (w Creat) 2 Months R80.9 - Proteinuria, unspecified WBC ONLY Today D72.829 - Elevated white blood cell count, unspecified Medications: Discontinued amoxicillin Discontinued Reason: Patient Completed Course 500 mg PO Q12H 5 days 10 tabs 0RF
--- OUTSIDE RECORDS SUMMARY | 2025-03-08 18:07 | XMS_ITS | Encounter Summary ---
Author Organization [facility] Address [address] [facility] [address] [place] [address] Phone Care Team Providers Care Police Superintendent Name Role Phone Dylan Tomas MD Primary Care Provider + Encounter Details Date Type Department Care Team (Late st Contact Info) Description 12/01/2017 Procedure Pass [facility] [address] [place] [address] Social History Tobacco Use Types Packs/Day Years [...] documented as of this encounter Care Teams Police Superintendent Relationship Specialty Start Date End Date Dylan Tomas MD [address] [place] [address] PCP - General Internal Medicine 12/09/14 documented as of this encounter Additional Source Comments The information contained in this document represents components of the legal health record. It is not the complete legal health record.[facility]
--- OUTSIDE RECORDS SUMMARY | 2025-03-08 18:07 | XMS_ITS | Encounter Summary ---
Author Organization [facility] Address [address] [facility] [address] [place] [address] Phone Care Team Providers Care Health And Social Care Teacher Name Role Phone Dylan Tomas MD Primary Care Provider + Encounter Details Date Type Department Care Team (Late st Contact Info) Description 02/28/2020 Procedure Pass [facility] [address] [place] [address] Social History Tobacco Use Types Packs/Day Years [...] documented as of this encounter Care Teams Health And Social Care Teacher Relationship Specialty Start Date End Date Dylan Tomas MD [address] [place] [address] PCP - General Internal Medicine 12/09/14 documented as of this encounter Additional Source Comments The information contained in this document represents components of the legal health record. It is not the complete legal health record.[facility]
--- OUTSIDE RECORDS SUMMARY | 2025-03-08 18:07 | XMS_ITS | Encounter Summary ---
Author Organization [facility] Address [address] [facility] [address] [place] [address] Phone Care Team Providers Care Oven Worker Name Role Phone Dylan Tomas MD Primary Care Provider + Encounter Details Date Type Department Care Team (Latest Contact Info) Description 04/18/2015 Transcribe Orders [facility] [address] [place] [address] Amauri Dickey [address] [place], [place] [id number] [email or web address] Gross hematuria (Primary Dx) Social History Tobacco [...] Primary documented in this encounter Care Teams Oven Worker Relationship Specialty Start Date End Date Dylan Tomas MD [address] [place] [address] PCP - General Internal Medicine 12/09/14 documented as of this encounter Additional Source Comments The information contained in this document represents components of the legal health record. It is not the complete legal health record.[facility]
--- OUTSIDE RECORDS SUMMARY | 2025-03-08 18:07 | XMS_ITS | Encounter Summary ---
Author Organization [facility] Address [address] [facility] [address] [place] [address] Phone Care Team Providers Care Windlasser Name Role Phone Dylan Tomas MD Primary Care Provider + Encounter Details Date Type Department Care Team (Late st Contact Info) Description 09/16/2024 Procedure Pass [facility] Periop [address] [place] [address] Social History Tobacco Use Types Packs/Day Years [...] documented as of this encounter Care Teams Windlasser Relationship Specialty Start Date End Date Dylan Tomas MD [address] [place] [address] PCP - General Internal Medicine 12/09/14 documented as of this encounter Additional Source Comments The information contained in this document represents components of the legal health record. It is not the complete legal health record.[facility]
--- OUTSIDE RECORDS SUMMARY | 2025-03-08 18:07 | XMS_ITS | Encounter Summary ---
Author Organization [facility] Address [address] [facility] [address] [place] [address] Phone Care Team Providers Care Genetic Engineer Name Role Phone Dylan Tomas MD Primary Care Provider + Encounter Details Date Type Department Care Team (Late st Contact Info) Description 12/01/[address] [facility] Periop [address] [place] [address] Social History Tobacco Use Types Packs/Day Years [...] documented as of this encounter Care Teams Genetic Engineer Relationship Specialty Start Date End Date Dylan Tomas MD [address] [place] [address] PCP - General Internal Medicine 12/09/14 documented as of this encounter Additional Source Comments The information contained in this document represents components of the legal health record. It is not the complete legal health record.[facility]
--- OUTSIDE RECORDS SUMMARY | 2025-03-08 18:07 | XMS_ITS | Encounter Summary ---
Author Organization [facility] Address [address] [facility] [address] [place] [address] Phone Care Team Providers Care Beauty Culturist Name Role Phone Dylan Tomas MD Primary Care Provider + Encounter Details Date Type Department Care Team (Late st Contact Info) Description 01/13/2015 Telephone [facility] Angio Interventional Radiology [address] [place] [address] Namrata Lyman, LUIS M [address] [place] [address] [email or web address] Social History Tobacco Use Types Packs/Day [...] on filedocumented in this encounter Care Teams Beauty Culturist Relationship Specialty Start Date End Date Dylan Tomas MD [address] [place] [address] PCP - General Internal Medicine 12/09/14 documented as of this encounter Additional Source Comments The information contained in this document represents components of the legal health record. It is not the complete legal health record.[facility]
--- OUTSIDE RECORDS SUMMARY | 2025-03-08 18:07 | XMS_ITS | Clinical Summary ---
Author Organization [facility] Address [address] [facility] [address] [place] [address] Phone Care Team Providers Care Inseminator Name Role Phone Dylan Tomas MD Primary [...] urinary bladder, unspecified site Bard Night Bag ([id number]) Dx code(s): Z90.6 (Hx of radical cystectomy) [...] O2 sat 90-91%, f/b [facility] [phone]; last hosp 12/2023 i/s/o COVID/ sepsis Resolved [...] Type Department Care Team Description 12/29/2024 Telephone [facility] Urology [address] [address] [place] [address] Mike Casarez 12/29/2024 Orders Only [facility] Urology [address] [address] [place] [address] Mike Casarez 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 (Primary Dx); Flank pain 12/28/2024 5:30 PM EDT Telemedicine - audio only [facility] Urology [address]N [address] [facility] [address] [place] [address] Van Macias MD History of bladder cancer (Primary Dx); 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 12/16/2024 12:56 PM EDT - 12/16/2024 11:59 PM EDT Hospital Encounter [facility], [address] [address] Van Macias MD Discharge Disposition: Home or Self Care 08/16/2024 Procedure Pass [facility], [address] [address] from Last 3 Months Immunizations Immunization Administration [...] 2) 05/01/2016 03/06/2016 DEPRESSION SCREENING 11/05/2018 11/05/2017 INFLUENZA VACCINE (#1) 2025 COVID-19 VACCINE ( season) 2025 05/14/2023, 05/01/2022, 01/29/2022, Additional history exists PNEUMOCOCCAL VACCINES (50+ years) Completed 02/03/2023, 02/22/2016, [...] this topic Medical Devices Implanted Type Area Calcine Furnace Loader Device Identifier Shelf Expiration Date Model / Serial / Lot Stent Ureteral 28cmx8.5fr Lub Flx Op Silicone - [id number] Implanted:Qty : 1 on 12/01/2017 by Van Macias MD at [facility] STANDARD OLYMPUS CHAD 06/14/2017 [id number] / / [id number] Stent Urological 7fr 30cm Double Pigtail Taper Tip Threaded Hydroplus Coated Percuflex Radiopaque Y - [id number] Implanted:Qty : 1 on 09/16/2024 by Van Macias MD at [facility] Ureteral Stent Right: Ureter Central Logic MAREK [id number] 06/27/2026 [id number] / / [id number] Urostomy Right Ptn Procedures Procedure Name Priority [...] clinician's provided indication for this examination in [facility]: *Flank pain, kidney stone suspected TECHNIQUE: [...] Months Insurance MEDICARE PART A & B Member Subscriber Plan / Payer (Ef fective 2007-Present) Name:David Zia Member ID:[id number] Relation to Subscriber:Self Name:NoearieZia donato Subscriber ID:[id number] Payer ID:[id number] Group ID:Not on file Type:Medicare Address: [facility] [employer] [facility] [email or web address] [facility] [address] [place] [phone] [employer] SUPPLEMENT MEDICARE PART A & B [employer] SUPPLEMENT MEDICARE PART A & B [employer] SUPPLEMENT MEDICARE PART A & B [employer] SUPPLEMENT MEDICARE PART A & B [employer] SUPPLEMENT MEDICARE PART A & B [employer] SUPPLEMENT MEDICARE PART A & B [facility] MEDEX SUPPLEMENT MEDICARE PART A & B [employer] SUPPLEMENT MEDICARE PART A & B [employer] SUPPLEMENT Advance Directives For more information, please contact: [phone] (9AM - 5PM [facility], Friday-Friday) Documents on File Type Date Recorded Patient Insulation Board Coater Operator Expl anation Healthcare Proxy 01/05/2015 2:15 PM [...] 8:23 PM 01/04/2015 6:59 PM Care Teams Inseminator Relationship Specialty Start Date End Date Dylan Tomas MD [address] [place] [address] PCP - General Internal Medicine 12/09/14 Additional Source Comments The information contained in this document represents components of the legal health record. It is not the complete legal health record.[facility]
--- OUTSIDE RECORDS SUMMARY | 2025-03-08 18:07 | XMS_ITS | Encounter Summary ---
Author Organization [facility] Address [address] [facility] [address] [place] [address] Phone Care Team Providers Care Or Manager Name Role Phone Dylan Tomas MD Primary Care Provider + Encounter Details Date Type Department Care Team (Late st Contact Info) Description 10/25/2017 Procedure Pass [facility] [address] [place] [address] Social History Tobacco Use Types Packs/Day Years [...] on filedocumented in this encounter Care Teams Or Manager Relationship Specialty Start Date End Date Dylan Tomas MD [address] [place] [address] PCP - General Internal Medicine 12/09/14 documented as of this encounter Additional Source Comments The information contained in this document represents components of the legal health record. It is not the complete legal health record.[facility]
--- OUTSIDE RECORDS SUMMARY | 2025-03-08 18:07 | XMS_ITS | Encounter Summary ---
Author Organization [facility] Address [address] [facility] [address] [place] [address] Phone Care Team Providers Care Assisted Living Manager Name Role Phone Dylan Tomas MD Primary Care Provider + Encounter Details Date Type Department Care Team (Latest Contact Info) Description 12/01/2015 Transcribe Orders [facility] [address] [place] [address] Amauri Dickey [address] [phone] [email or web address] Gross hematuria (Primary Dx) Social History [...] Primary documented in this encounter Care Teams Assisted Living Manager Relationship Specialty Start Date End Date Dylan Tomas MD [address] [place] [address] PCP - General Internal Medicine 12/09/14 documented as of this encounter Additional Source Comments The information contained in this document represents components of the legal health record. It is not the complete legal health record.[facility]
--- OUTSIDE RECORDS SUMMARY | 2025-03-08 18:07 | XMS_ITS | Encounter Summary ---
Author Organization [facility] Address [address] [facility] [address] [place] [address] Phone Care Team Providers Care Slubber Hand Name Role Phone Dylan Tomas MD Primary Care Provider + Encounter Details Date Type Department Care Team (Late st Contact Info) Description 09/16/2024 Procedure Pass [facility] [address] [place] [address] Social History Tobacco Use Types Packs/Day Years [...] documented as of this encounter Care Teams Slubber Hand Relationship Specialty Start Date End Date Dylan Tomas MD [address] [place] [address] PCP - General Internal Medicine 12/09/14 documented as of this encounter Additional Source Comments The information contained in this document represents components of the legal health record. It is not the complete legal health record.[facility]
--- OUTSIDE RECORDS SUMMARY | 2025-03-08 18:07 | XMS_ITS | Encounter Summary ---
Author Organization [facility] Address [address] [facility] [address] [place] [address] Phone Care Team Providers Care Steam Conditioner Filling Name Role Phone Dylan Tomas MD Primary Care Provider + Encounter Details Date Type Department Care Team (Late st Contact Info) Description 08/16/2024 Procedure Pass [facility] [place], Ct Scan - [address] [address] Social History Tobacco Use Types Packs/Day Years [...] documented as of this encounter Care Teams Steam Conditioner Filling Relationship Specialty Start Date End Date Dylan Tomas MD [address] [place] [address] PCP - General Internal Medicine 12/09/14 documented as of this encounter Additional Source Comments The information contained in this document represents components of the legal health record. It is not the complete legal health record.[facility]
--- OUTSIDE RECORDS SUMMARY | 2025-03-08 18:08 | XMS_ITS | Encounter Summary ---
Author Organization [facility] Address [address] [facility] [address] [place] [address] Phone Care Team Providers Care Nougat Candy Maker Helper Name Role Phone Dylan Tomas MD Primary Care Provider + Encounter Details Date Type Department Care Team (Late st Contact Info) Description 01/16/2015 Telephone [facility] Angio Interventional Radiology [address] [place] [address] Lynette Apple RN Social History Tobacco Use [...] on filedocumented in this encounter Care Teams Nougat Candy Maker Helper Relationship Specialty Start Date End Date Dylan Tomas MD [address] [place] [address] PCP - General Internal Medicine 12/09/14 documented as of this encounter Additional Source Comments The information contained in this document represents components of the legal health record. It is not the complete legal health record.[facility]
--- OUTSIDE RECORDS SUMMARY | 2025-03-08 18:08 | XMS_ITS | Encounter Summary ---
Author Organization [facility] Address [address] [facility] [address] [place] [address] Phone Care Team Providers Care Garbage Man Name Role Phone Dylan Tomas MD Primary Care Provider + Reason for Referral * MRI/CAT Scan - Closed Specialty Diagnoses / Procedures Referred By Ana tovar Referred To Contact Radiology Diagnoses 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 Procedures CT 3D Reconstruction Abdomen and Pelvis Van Macias MD Phone: tel: fax: [email or web address] Referral ID Status Reason Start Date Expiration Date Visits Re quested Visits Authorized [id number] Closed 06/12/2018 06/12/2019 1 1 Encounter Details Date Type Department Care Team (Late st Contact Info) Description 06/12/2018 Ancillary Orders [facility] Urology [address] [place], [place] [id number] [place] [address] Van Macias MD [address] [place] [address] [address] [place] [address] [email or web address] 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 It is not the complete legal health record.[facility]
--- OUTSIDE RECORDS SUMMARY | 2025-03-08 18:08 | XMS_ITS | Encounter Summary ---
Author Organization [facility] Address [address] [facility] [address] [place] [address] Phone Care Team Providers Care Scow Hand Name Role Phone Dylan Tomas MD Primary Care Provider + Reason for Visit * Reason Onset Date Comments Medication Refill 11/02/2018 PT is requesti ng a Urostomy waffers and urostomy pouches order to be sent. [facility] , fax # [phone] Encounter Details Date Type Department Care Team (Late st Contact Info) Description 11/02/2018 Telephone [facility] [phone] Jenifer [email or web address] Medication Refill (PT is requesting a Urostomy waffers and urostomy pouches order to be sent. [facility] , fax # [phone]) Social History Tobacco Use Types Packs/Day Years [...] documented as of this encounter Care Teams Scow Hand Relationship Specialty Start Date End Date Dylan Tomas MD [address] [place] [address] PCP - General Internal Medicine 12/09/14 documented as of this encounter Additional Source Comments The information contained in this document represents components of the legal health record. It is not the complete legal health record.[facility]
--- OUTSIDE RECORDS SUMMARY | 2025-03-08 18:08 | XMS_ITS | Encounter Summary ---
Author Organization [facility] Address [address] [facility] [address] [place] [address] Phone Care Team Providers Care Senior Software Engineering Manager Name Role Phone Dylan Tomas MD Primary Care Provider + Encounter Details Date Type Department Care Team (Late st Contact Info) Description 12/24/2017 Procedure Pass [facility] [address] [place] [address] Social History Tobacco Use Types Packs/Day Years [...] as of this encounter Care Teams Senior Software Engineering Manager Relationship Specialty Start Date End Date Dylan Tomas MD [address] [place] [address] PCP - General Internal Medicine 12/09/14 documented as of this encounter Additional Source Comments The information contained in this document represents components of the legal health record. It is not the complete legal health record.[facility]
--- OUTSIDE RECORDS SUMMARY | 2025-03-08 18:08 | XMS_ITS | Encounter Summary ---
Author Organization [facility] Address [address] [facility] [address] [place] [address] Phone Care Team Providers Care Whirley Operator Name Role Phone Dylan Tomas MD Primary Care Provider + Encounter Details Date Type Department Care Team (Latest Contact Info) Description 12/09/2014 Transcribe Orders [facility] [address] [place] [address] Amauri Dickey [address] [phone] [email or web address] Carcinoma of bladder (Primary Dx) Social History [...] unspecified documented in this encounter Care Teams Whirley Operator Relationship Specialty Start Date End Date Dylan Tomas MD [address] [place] [address] PCP - General Internal Medicine 12/09/14 documented as of this encounter Additional Source Comments The information contained in this document represents components of the legal health record. It is not the complete legal health record.[facility]
--- OUTSIDE RECORDS SUMMARY | 2025-03-08 18:08 | XMS_ITS | Encounter Summary ---
Author Organization [facility] Address [address] [facility] [address] [place] [address] Phone Care Team Providers Care Superintendent Commissary Name Role Phone Dylan Tomas MD Primary Care Provider + Encounter Details Date Type Department Care Team ([facility] st Contact Info) Description 08/03/2024 Procedure Pass [facility] [address] [facility] [address] [place] [address] Social History Tobacco Use Types Packs/Day Years [...] documented as of this encounter Care Teams Superintendent Commissary Relationship Specialty Start Date End Date Dylan Tomas MD [address] [place] [address] PCP - General Internal Medicine 12/09/14 documented as of this encounter Additional Source Comments The information contained in this document represents components of the legal health record. It is not the complete legal health record.[facility]
== END 2025-03-08 16:01 | disposition home or self-care (01) ==
LOC: HO.HMCFM 15:06
PROVIDERS: PCP Nurse Practitioner Family; Visit Provider Nurse Practitioner Family
DX: R73.01 Impaired fasting glucose (principal); N39.0 Urinary tract infection, site not specified; R80.9 Proteinuria, unspecified; D72.829 Elevated white blood cell count, unspecified

== ENCOUNTER 2025-03-11 10:29 | Outpatient (REF) | payer MEDICARE, SELFPAY ==
--- OUTSIDE RECORDS SUMMARY | 2025-03-11 11:57 | XMS_ITS | Encounter Summary ---
Author Organization [facility] Address [address] [facility] [address] [place] [address] Phone Care Team Providers Care Pad Assembler Name Role Phone Dylan Tomas MD Primary Care Provider + Encounter Details Date Type Department Care Team (Latest Contact Info) Description 12/01/2015 Transcribe Orders [facility] [address] [place] [address] Amauri Dickey [address] [phone] [email or web address] Gross hematuria (Primary Dx) Social History Tobacco [...] Primary documented in this encounter Care Teams Pad Assembler Relationship Specialty Start Date End Date Dylan Tomas MD [address] [place] [address] PCP - General Internal Medicine 12/09/14 documented as of this encounter Additional Source Comments The information contained in this document represents components of the legal health record. It is not the complete legal health record.[facility]
--- OUTSIDE RECORDS SUMMARY | 2025-03-11 11:57 | XMS_ITS | Encounter Summary ---
Author Organization [facility] Address [address] [facility] [address] [place] [address] Phone Care Team Providers Care Paper Sorter Name Role Phone Dylan Tomas MD Primary Care Provider + Encounter Details Date Type Department Care Team (Late st Contact Info) Description 08/16/2024 Procedure Pass [facility], Ct Scan - [address] [address] Social History Tobacco Use Types Packs/Day Years [...] documented as of this encounter Care Teams Paper Sorter Relationship Specialty Start Date End Date Dylan Tomas MD [address] [place] [address] PCP - General Internal Medicine 12/09/14 documented as of this encounter Additional Source Comments The information contained in this document represents components of the legal health record. It is not the complete legal health record.[facility]
--- OUTSIDE RECORDS SUMMARY | 2025-03-11 11:57 | XMS_ITS | Encounter Summary ---
Author Organization [facility] Address [address] [facility] [address] [place] [address] Phone Care Team Providers Care Surgical Lead Name Role Phone Dylan Tomas MD Primary Care Provider + Encounter Details Date Type Department Care Team (Latest Contact Info) Description 04/18/2015 Transcribe Orders [facility] [address] [place] [address] Amauri Dickey [address] [place], [place] [phone] [email or web address] Gross hematuria (Primary Dx) Social History Tobacco [...] Primary documented in this encounter Care Teams Surgical Lead Relationship Specialty Start Date End Date Dylan Tomas MD [address] [place] [address] PCP - General Internal Medicine 12/09/14 documented as of this encounter Additional Source Comments The information contained in this document represents components of the legal health record. It is not the complete legal health record.[facility]
--- OUTSIDE RECORDS SUMMARY | 2025-03-11 11:57 | XMS_ITS | Encounter Summary ---
Author Organization [facility] Address [address] [facility] [address] [place] [address] Phone Care Team Providers Care Parking Lot Attendant And Cashier Name Role Phone Dylan Tomas MD Primary Care Provider + Encounter Details Date Type Department Care Team (Late st Contact Info) Description 09/16/2024 Procedure Pass [facility] [address] [place] [address] Social History Tobacco Use Types Packs/Day Years [...] documented as of this encounter Care Teams Parking Lot Attendant And Cashier Relationship Specialty Start Date End Date Dylan Tomas MD [address] [place] [address] PCP - General Internal Medicine 12/09/14 documented as of this encounter Additional Source Comments The information contained in this document represents components of the legal health record. It is not the complete legal health record.[facility]
--- OUTSIDE RECORDS SUMMARY | 2025-03-11 11:57 | XMS_ITS | Encounter Summary ---
Author Organization [facility] Address [address] [facility] [address] [place] [address] Phone Care Team Providers Care Instructor Tap Dancing Name Role Phone Dylan Tomas MD Primary Care Provider + Encounter Details Date Type Department Care Team (Late st Contact Info) Description 09/16/2024 Procedure Pass [facility] Periop [address] [place] [address] Social History Tobacco Use Types Packs/Day Years [...] documented as of this encounter Care Teams Instructor Tap Dancing Relationship Specialty Start Date End Date Dylan Tomas MD [address] [place] [address] PCP - General Internal Medicine 12/09/14 documented as of this encounter Additional Source Comments The information contained in this document represents components of the legal health record. It is not the complete legal health record.[facility]
--- OUTSIDE RECORDS SUMMARY | 2025-03-11 11:57 | XMS_ITS | Clinical Summary ---
Author Organization [facility] Address [address] [facility] [address] [place] [address] Phone Care Team Providers Care Research Agricultural Engineer Name Role Phone Dylan Tomas MD [...] urinary bladder, unspecified site Bard Night Bag ([id number]) Dx code(s): Z90.6 (Hx of radical cystectomy) [...] O2 sat 90-91%, f[facility] [phone]; last hosp 12/2023 i/s/o COVID/ sepsis Resolved [...] Type Department Care Team Description 12/29/2024 Telephone [facility] Urology [address] [address] [place] [address] Mike Casarez 12/29/2024 Orders Only [facility] Urology [address] [address] [place] [address] Mike Casarez 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 (Primary Dx); Flank pain 12/28/2024 5:30 PM EDT Telemedicine - audio only [facility] Urology [address] [facility] [address] [place] [address] Van Macias MD History of bladder cancer (Primary Dx); 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 12/16/2024 12:56 PM EDT - 12/16/2024 11:59 PM EDT Hospital Encounter [facility], [address] [address] Van Macias MD Discharge Disposition: Home or Self Care 08/16/2024 Procedure Pass [facility], [address] [address] from Last 3 Months Immunizations Immunization Administration [...] this topic Medical Devices Implanted Type Area Boring Mill Set Up Operator Vertical Device Identifier Shelf Expiration Date Model / Serial / Lot Stent Ureteral 28cmx8.5fr Lub Flx Op Silicone - [id number] Implanted:Qty : 1 on 12/01/2017 by Van Macias MD at [facility] STANDARD OLYMPUS CHAD 06/14/2017 [id number] / / [id number] Stent Urological 7fr 30cm Double Pigtail Taper Tip Threaded Hydroplus Coated Percuflex Radiopaque Y - [id number] Implanted:Qty : 1 on 09/16/2024 by Van Macias MD at [facility] Ureteral Stent Right: Ureter PROTEGO MAREK [id number] 06/27/2026 [id number] / / [id number] Urostomy Right Ptn Procedures Procedure Name Priority [...] Payer (Ef fective 2007-Present) Name:David Zia Member ID:[id number] Relation to Subscriber:Self Name:NoearieZia donato Subscriber ID:[id number] Payer ID:[id number] Group ID:Not on file Type:Medicare Address: [facility] [employer] [email or web address] [address] [place] [phone] [employer] MEDEX SUPPLEMENT MEDICARE PART A & B [employer] MEDEX SUPPLEMENT MEDICARE PART A & B [employer] MEDEX SUPPLEMENT MEDICARE PART A & B [employer] MEDEX SUPPLEMENT MEDICARE PART A & B [employer] MEDEX SUPPLEMENT MEDICARE PART A & B [employer] MEDEX SUPPLEMENT MEDICARE PART A & B [facility] MEDEX SUPPLEMENT MEDICARE PART A & B [employer] MEDEX SUPPLEMENT MEDICARE PART A & B [employer] MEDEX SUPPLEMENT Advance Directives For more information, please contact: [phone] (9AM - 5PM Chad/[facility], Friday-Friday) Documents on File Type Date Recorded Patient Tuber Operator Expl anation Healthcare Proxy 01/05/2015 2:15 [...] 8:23 PM 01/04/2015 6:59 PM Care Teams Research Agricultural Engineer Relationship Specialty Start Date End Date Dylan Tomas MD [address] [place] [address] PCP - General Internal Medicine 12/09/14 Additional Source Comments The information contained in this document represents components of the legal health record. It is not the complete legal health record.[facility]
--- OUTSIDE RECORDS SUMMARY | 2025-03-11 11:57 | XMS_ITS | Encounter Summary ---
Author Organization [facility] Address [address] [facility] [address] [place] [address] Phone Care Team Providers Care Pawn Broker Name Role Phone Dylan Tomas MD Primary Care Provider + Encounter Details Date Type Department Care Team (Late st Contact Info) Description 12/01/2017 Procedure Pass [facility] Periop [address] [place] [address] Social History Tobacco Use Types Packs/Day Years [...] documented as of this encounter Care Teams Pawn Broker Relationship Specialty Start Date End Date Dylan Tomas MD [address] [place] [address] PCP - General Internal Medicine 12/09/14 documented as of this encounter Additional Source Comments The information contained in this document represents components of the legal health record. It is not the complete legal health record.[facility]
--- OUTSIDE RECORDS SUMMARY | 2025-03-11 11:57 | XMS_ITS | Encounter Summary ---
Author Organization [facility] Address [address] [facility] [address] [place] [address] Phone Care Team Providers Care Recreation Manager Name Role Phone Dylan Tomas MD Primary Care Provider + Encounter Details Date Type Department Care Team (Late st Contact Info) Description 01/13/[address] [facility] Angio Interventional Radiology [address] [place] [address] Namrata Lyman, LUIS M [address] [place] [address] [email or web address] Social History Tobacco Use Types Packs/Day Years [...] on filedocumented in this encounter Care Teams Recreation Manager Relationship Specialty Start Date End Date Dylan Tomas MD [address] [place] [address] PCP - General Internal Medicine 12/09/14 documented as of this encounter Additional Source Comments The information contained in this document represents components of the legal health record. It is not the complete legal health record.[facility]
--- OUTSIDE RECORDS SUMMARY | 2025-03-11 11:57 | XMS_ITS | Encounter Summary ---
Author Organization [facility] Address [address] [facility] [address] [place] [address] Phone Care Team Providers Care Top Distribution Executive Name Role Phone Dylan Tomas MD Primary Care Provider + Encounter Details Date Type Department Care Team (Late st Contact Info) Description 10/25/2017 Procedure Pass [facility] [address] [place] [address] Social History Tobacco Use Types Packs/Day Years [...] on filedocumented in this encounter Care Teams Top Distribution Executive Relationship Specialty Start Date End Date Dylan Tomas MD [address] [place] [address] PCP - General Internal Medicine 12/09/14 documented as of this encounter Additional Source Comments The information contained in this document represents components of the legal health record. It is not the complete legal health record.[facility]
--- OUTSIDE RECORDS SUMMARY | 2025-03-11 11:58 | XMS_ITS | Encounter Summary ---
Author Organization [facility] Address [address] [facility] [address] [place] [address] Phone Care Team Providers Care Blood Collector Name Role Phone Dylan Tomas MD Primary Care Provider + Encounter Details Date Type Department Care Team (Late st Contact Info) Description 02/28/2020 Procedure Pass [facility] [address] [place] [address] Social History Tobacco Use Types Packs/Day Years [...] documented as of this encounter Care Teams Blood Collector Relationship Specialty Start Date End Date Dylan Tomas MD [address] [place] [address] PCP - General Internal Medicine 12/09/14 documented as of this encounter Additional Source Comments The information contained in this document represents components of the legal health record. It is not the complete legal health record.[facility]
--- OUTSIDE RECORDS SUMMARY | 2025-03-11 11:58 | XMS_ITS | Encounter Summary ---
Author Organization [facility] Address [address] [facility] [address] [place] [address] Phone Care Team Providers Care Cook Manager Name Role Phone Dylan Tomas MD Primary Care Provider + Encounter Details Date Type Department Care Team ([facility] st Contact Info) Description 08/03/2024 Procedure Pass [facility] [address] [facility] [address] [place] [address] Social History Tobacco Use Types Packs/Day Years [...] documented as of this encounter Care Teams Cook Manager Relationship Specialty Start Date End Date Dylan Tomas MD [address] [place] [address] PCP - General Internal Medicine 12/09/14 documented as of this encounter Additional Source Comments The information contained in this document represents components of the legal health record. It is not the complete legal health record.[facility]
--- OUTSIDE RECORDS SUMMARY | 2025-03-11 11:58 | XMS_ITS | Encounter Summary ---
Author Organization [facility] Address [address] [facility] [address] [place] [address] Phone Care Team Providers Care Irrigation Engineer Name Role Phone Dylan Tomas MD Primary Care Provider + Reason for Visit * Reason Onset Date Comments Medication Refill 11/02/2018 PT is requesti ng a Urostomy waffers and urostomy pouches order to be sent. [facility] , fax # [phone] Encounter Details Date Type Department Care Team (Late st Contact Info) Description 11/02/2018 Telephone [facility]'[address] [id number] Jenifer [email or web address] Medication Refill (PT is requesting a Urostomy waffers and urostomy pouches order to be sent. [facility] , fax # [phone]) Social History Tobacco Use Types Packs/Day Years [...] documented as of this encounter Care Teams Irrigation Engineer Relationship Specialty Start Date End Date Dylan Tomas MD [address] [place] [address] PCP - General Internal Medicine 12/09/14 documented as of this encounter Additional Source Comments The information contained in this document represents components of the legal health record. It is not the complete legal health record.[facility]
--- OUTSIDE RECORDS SUMMARY | 2025-03-11 11:58 | XMS_ITS | Encounter Summary ---
Author Organization [facility] Address [address] [place] [address] Phone Care Team Providers Care Bedspring Assembler Name Role Phone Dylan Tomas MD Primary Care Provider + Encounter Details Date Type Department Care Team (Late st Contact Info) Description 12/01/2017 Procedure Pass [facility] [address] [place] [address] Social History Tobacco Use Types Packs/Day Years [...] documented as of this encounter Care Teams Bedspring Assembler Relationship Specialty Start Date End Date Dylan Tomas MD [address] [place] [address] PCP - General Internal Medicine 12/09/14 documented as of this encounter Additional Source Comments The information contained in this document represents components of the legal health record. It is not the complete legal health record.[facility]
--- OUTSIDE RECORDS SUMMARY | 2025-03-11 11:58 | XMS_ITS | Encounter Summary ---
Author Organization [facility] Address [address] [facility] [address] [place] [address] Phone Care Team Providers Care Behavioral Psychologist Name Role Phone Dylan Tomas MD Primary Care Provider + Encounter Details Date Type Department Care Team (Late st Contact Info) Description 01/16/2015 Telephone [facility] Angio Interventional Radiology [address] [place] [address] Lynette Apple RN Social History Tobacco Use [...] on filedocumented in this encounter Care Teams Behavioral Psychologist Relationship Specialty Start Date End Date Dylan Tomas MD [address] [place] [address] PCP - General Internal Medicine 12/09/14 documented as of this encounter Additional Source Comments The information contained in this document represents components of the legal health record. It is not the complete legal health record.[facility]
--- OUTSIDE RECORDS SUMMARY | 2025-03-11 11:58 | XMS_ITS | Encounter Summary ---
Author Organization [facility] Address [address] [facility] [address] [place] [address] Phone Care Team Providers Care Window Draper Name Role Phone Dylan Tomas MD Primary Care Provider + Encounter Details Date Type Department Care Team (Late st Contact Info) Description 12/24/2017 Procedure Pass [facility] [address] [place] [address] Social History Tobacco Use Types Packs/Day Years [...] documented as of this encounter Care Teams Window Draper Relationship Specialty Start Date End Date Dylan Tomas MD [address] [place] [address] PCP - General Internal Medicine 12/09/14 documented as of this encounter Additional Source Comments The information contained in this document represents components of the legal health record. It is not the complete legal health record.[facility]
--- OUTSIDE RECORDS SUMMARY | 2025-03-11 11:58 | XMS_ITS | Encounter Summary ---
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 Urology [address] [place], [place] [id number] [place] [address] Van Macias MD [address] [place] [address] [address] [place] [address] [email or web address] Calculus of kidney with calculus of [...] documented as of this encounter Care Teams Yard Specialist Relationship Specialty Start Date End Date Dylan Tomas MD [address] [place] [address] PCP - General Internal Medicine 12/09/14 documented as of this encounter Additional Source Comments The information contained in this document represents components of the legal health record. It is not the complete legal health record.[facility]
--- OUTSIDE RECORDS SUMMARY | 2025-03-11 11:58 | XMS_ITS | Encounter Summary ---
Author Organization [facility] Address [address] [facility] [address] [place] [address] Phone Care Team Providers Care Logistics System Engineer Name Role Phone Dylan Tomas MD Primary Care Provider + Encounter Details Date Type Department Care Team (Latest Contact Info) Description 12/09/2014 Transcribe Orders [facility] [address] [place] [address] Amauri Dickey [address] [phone] [email or web address] Carcinoma of bladder (Primary Dx) Social [...] unspecified documented in this encounter Care Teams Logistics System Engineer Relationship Specialty Start Date End Date Dylan Tomas MD [address] [place] [address] PCP - General Internal Medicine 12/09/14 documented as of this encounter Additional Source Comments The information contained in this document represents components of the legal health record. It is not the complete legal health record.[facility]
[2025-03-11 14:25] LABS: Appearance Urine Cloudy; Glucose Urine UA Negative (Negative); PH 6.5 (5.0-9.0); Specific Gravity - Urine 1.015 (1.005-1.025); UMIC TRIGGER UACC YES
[2025-03-11 14:37] LABS: UACC Culture Trigger YES
[2025-03-11 14:37] LABS: White Blood Count 10.9 X10*3/uL (4.8-10.8)
== END 2025-03-11 10:30 | disposition home or self-care (01) ==
LOC: HO.WFDLDS 10:29
PROVIDERS: Visit Provider Nurse Practitioner Family
DX: R73.01 Impaired fasting glucose (principal); D72.829 Elevated white blood cell count, unspecified; N39.0 Urinary tract infection, site not specified
CPT/HCPCS: 36415; 81001; 82947; 85048; 87086

== ENCOUNTER 2025-04-22 16:03 | Outpatient (REF) | payer MEDICARE, SELFPAY ==
[2025-04-22 14:43] LABS: Appearance Urine Cloudy; Glucose Urine UA Negative (Negative); PH 7.0 (5.0-9.0); Specific Gravity - Urine 1.015 (1.005-1.025); UMIC TRIGGER UACC YES
[2025-04-22 15:02] LABS: UACC Culture Trigger YES
--- OUTSIDE RECORDS SUMMARY | 2025-04-22 16:47 | XMS_ITS | Encounter Summary ---
Author Organization [facility] Address [address] [facility] [address] [place] [address] Phone Care Team Providers Care Grinder Mill Operator Name Role Phone Dylan Tomas MD Primary Care Provider + Encounter Details Date Type Department Care Team (Late st Contact Info) Description 08/16/2024 Procedure Pass [facility], Ct Scan - [address] [address] Social History Tobacco Use Types Packs/Day Years [...] documented as of this encounter Care Teams Grinder Mill Operator Relationship Specialty Start Date End Date Dylan Tomas MD [address] [place] [address] PCP - General Internal Medicine 12/09/14 documented as of this encounter Additional Source Comments The information contained in this document represents components of the legal health record. It is not the complete legal health record.[facility]
--- OUTSIDE RECORDS SUMMARY | 2025-04-22 16:47 | XMS_ITS | Encounter Summary ---
Author Organization [facility] Address [address] [facility] [address] [place] [address] Phone Care Team Providers Care Painting Worker Name Role Phone Dylan Tomas MD Primary Care Provider + Encounter Details Date Type Department Care Team (Latest Contact Info) Description 12/01/2015 Transcribe Orders [facility] [address] [place] [address] Amauri Dickey [address] [phone] [email or web address] Gross hematuria (Primary Dx) Social History [...] Primary documented in this encounter Care Teams Painting Worker Relationship Specialty Start Date End Date Dylan Tomas MD [address] [place] [address] PCP - General Internal Medicine 12/09/14 documented as of this encounter Additional Source Comments The information contained in this document represents components of the legal health record. It is not the complete legal health record.[facility]
--- OUTSIDE RECORDS SUMMARY | 2025-04-22 16:47 | XMS_ITS | Encounter Summary ---
Author Organization [facility] Address [address] [place] [address] Phone Care Team Providers Care Legal Billing Coordinator Name Role Phone Dylan Tomas MD Primary Care Provider + Encounter Details Date Type Department Care Team (Late st Contact Info) Description 10/25/2017 Procedure Pass [facility] [address] [place] [address] Social History Tobacco Use Types Packs/Day Years [...] on filedocumented in this encounter Care Teams Legal Billing Coordinator Relationship Specialty Start Date End Date Dylan Tomas MD [address] [place] [address] PCP - General Internal Medicine 12/09/14 documented as of this encounter Additional Source Comments The information contained in this document represents components of the legal health record. It is not the complete legal health record.[facility]
--- OUTSIDE RECORDS SUMMARY | 2025-04-22 16:47 | XMS_ITS | Encounter Summary ---
Author Organization [facility] Address [address] [facility] [address] [place] [address] Phone Care Team Providers Care Ship Wirer Name Role Phone Dylan Tomas MD Primary Care Provider + Encounter Details Date Type Department Care Team (Late st Contact Info) Description 09/16/2024 Procedure Pass [facility] Periop [address] [place] [address] Social History Tobacco Use Types Packs/Day Years [...] documented as of this encounter Care Teams Ship Wirer Relationship Specialty Start Date End Date Dylan Tomas MD [address] [place] [address] PCP - General Internal Medicine 12/09/14 documented as of this encounter Additional Source Comments The information contained in this document represents components of the legal health record. It is not the complete legal health record.[facility]
--- OUTSIDE RECORDS SUMMARY | 2025-04-22 16:47 | XMS_ITS | Encounter Summary ---
Author Organization [facility] Address [address] [facility] [address] [place] [address] Phone Care Team Providers Care Embossing Press Operator Apprentice Name Role Phone Dylan Tomas MD Primary Care Provider + Encounter Details Date Type Department Care Team (Late st Contact Info) Description 12/01/2017 Procedure Pass [facility] Periop [address] [place] [address] Social History Tobacco Use Types Packs/Day Years [...] documented as of this encounter Care Teams Embossing Press Operator Apprentice Relationship Specialty Start Date End Date Dylan Tomas MD [address] [place] [address] PCP - General Internal Medicine 12/09/14 documented as of this encounter Additional Source Comments The information contained in this document represents components of the legal health record. It is not the complete legal health record.[facility]
--- OUTSIDE RECORDS SUMMARY | 2025-04-22 16:47 | XMS_ITS | Clinical Summary ---
Author Organization [facility] Address [address] [facility] [address] [place] [address] Phone Care Team Providers Care Bottom Presser Name Role Phone Dylan Tomas MD Primary [...] urinary bladder, unspecified site [employer] ([id number]) Dx code(s): Z90.6 (Hx of radical cystectomy) [...] 90-91%, f[facility] [phone]; last hosp 12/2023 i/s/o COVID/ sepsis Resolved [...] 12/2023 hosp x 2 weeks, not intub Immunizations Immunization Administration Dates Next Due Pneumococcal [...] 09/16/2024 Are you denied basic needs [facility] as food, clothing, or medical care? No [...] this topic Medical Devices Implanted Type Area Template Layout Worker Device Identifier Shelf Expiration Date Model / Serial / Lot Stent Ureteral 28cmx8.5fr Lub Flx Op Silicone - [id number] Implanted:Qty : 1 on 12/01/2017 by Van Macias MD at [facility] STANDARD OLYMPUS CHAD 06/14/2017 [id number] / / [id number] Stent Urological 7fr 30cm Double Pigtail Taper Tip Threaded Hydroplus Coated Percuflex Radiopaque Y - [id number] Implanted:Qty : 1 on 09/16/2024 by Van Macias MD at [facility] Ureteral Stent Right: Ureter [employer] [id number] 06/27/2026 [id number] / / [id number] Urostomy Right Ptn Insurance MEDICARE PART A & B Stevie MEDEX SUPPLEMENT MEDICARE PART A & B Stevie MEDEX SUPPLEMENT MEDICARE PART A & B Stevie MEDEX SUPPLEMENT MEDICARE PART A & B [employer] MEDEX SUPPLEMENT MEDICARE PART A & B Stevie MEDEX SUPPLEMENT MEDICARE PART A & B Stevie MEDEX SUPPLEMENT MEDICARE PART A & B Stevie MEDEX SUPPLEMENT MEDICARE PART A & B Stevie MEDEX SUPPLEMENT MEDICARE PART A & B Stevie MEDEX SUPPLEMENT Advance Directives For more information, please contact: [phone] (9AM - 5PM [place], Friday-Friday) Documents on File Type Date Recorded Patient Engineer Technical Staff Expl anation Healthcare Proxy 01/05/2015 2:15 PM [...] 8:23 PM 01/04/2015 6:59 PM Care Teams Bottom Presser Relationship Specialty Start Date End Date Dylan Tomas MD [address] [place] [address] PCP - General Internal Medicine 12/09/14 Additional Source Comments The information contained in this document represents components of the legal health record. It is not the complete legal health record.[facility]
--- OUTSIDE RECORDS SUMMARY | 2025-04-22 16:47 | XMS_ITS | Encounter Summary ---
Author Organization [facility] Address [address] [facility] [facility] [address] [place] [address] Phone Care Team Providers Care Parking Lot Chauffeur Name Role Phone Dylan Tomas MD Primary Care Provider + Encounter Details Date Type Department Care Team (Late st Contact Info) Description 09/16/2024 Procedure Pass [facility] [address] [place] [address] Social History Tobacco Use Types Packs/Day Years [...] of this encounter Care Teams Parking Lot Chauffeur Relationship Specialty Start Date End Date Dylan Tomas MD [address] [place] [address] PCP - General Internal Medicine 12/09/14 documented as of this encounter Additional Source Comments The information contained in this document represents components of the legal health record. It is not the complete legal health record.[facility]
--- OUTSIDE RECORDS SUMMARY | 2025-04-22 16:47 | XMS_ITS | Encounter Summary ---
Author Organization [facility] Address [address] [facility] [address] [place] [address] Phone Care Team Providers Care Media Account Executive Name Role Phone Dylan Tomas MD Primary Care Provider + Encounter Details Date Type Department Care Team (Late st Contact Info) Description 01/13/2015 Telephone [facility] Angio Interventional Radiology [address] [place] [address] Namrata Lyman, LUIS M [address] [place] [address] [email or web address] Social History Tobacco Use Types Packs/Day [...] on filedocumented in this encounter Care Teams Media Account Executive Relationship Specialty Start Date End Date Dylan Tomas MD [address] [place] [address] PCP - General Internal Medicine 12/09/14 documented as of this encounter Additional Source Comments The information contained in this document represents components of the legal health record. It is not the complete legal health record.[facility]
--- OUTSIDE RECORDS SUMMARY | 2025-04-22 16:47 | XMS_ITS | Encounter Summary ---
Author Organization [facility] Address [address] [facility] [address] [place] [address] Phone Care Team Providers Care Ceramic Sprayer Name Role Phone Dylan Tomas MD Primary Care Provider + Encounter Details Date Type Department Care Team (Latest Contact Info) Description 04/18/2015 Transcribe Orders [facility] [address] [place] [address] Amauri Dickey [address] [place], [place] [phone] [email or web address] Gross hematuria (Primary Dx) Social History Tobacco [...] Primary documented in this encounter Care Teams Ceramic Sprayer Relationship Specialty Start Date End Date Dylan Tomas MD [address] [place] [address] PCP - General Internal Medicine 12/09/14 documented as of this encounter Additional Source Comments The information contained in this document represents components of the legal health record. It is not the complete legal health record.[facility]
--- OUTSIDE RECORDS SUMMARY | 2025-04-22 16:48 | XMS_ITS | Encounter Summary ---
Author Organization [facility] Address [address] [facility] [address] [place] [address] Phone Care Team Providers Care Certified Home Health Aide Name Role Phone Dylan Tomas MD Primary Care Provider + Encounter Details Date Type Department Care Team (Latest Contact Info) Description 12/09/2014 Transcribe Orders [facility] [address] [place] [address] Amauri Dickey [address] [phone] [email or web address] Carcinoma of bladder (Primary Dx) Social History [...] unspecified documented in this encounter Care Teams Certified Home Health Aide Relationship Specialty Start Date End Date Dylan Tomas MD [address] [place] [address] PCP - General Internal Medicine 12/09/14 documented as of this encounter Additional Source Comments The information contained in this document represents components of the legal health record. It is not the complete legal health record.[facility]
--- OUTSIDE RECORDS SUMMARY | 2025-04-22 16:48 | XMS_ITS | Encounter Summary ---
Author Organization [facility] Address [address] [facility] [address] [place] [address] Phone Care Team Providers Care Optical Laboratory Mechanic Name Role Phone Dylan Tomas MD Primary Care Provider + Reason for Referral * MRI/CAT Scan - Closed Specialty Diagnoses / Procedures Referred By Ana tovar Referred To Contact Radiology Diagnoses 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 Procedures CT 3D Reconstruction Abdomen and Pelvis Van Macias MD Phone: tel: fax: mailto:[email or web address] Referral ID Status Reason Start Date Expiration Date Visits Re quested Visits Authorized [id number] Closed 06/12/2018 06/12/2019 1 1 Encounter Details Date Type Department Care Team (Late st Contact Info) Description 06/12/2018 Ancillary Orders [facility] Urology [address] [place], [place] [id number] [place] [address] Van Macias MD [address] [place] [address] 113 [place] [address] [email or web address] Calculus of kidney with calculus of [...] documented as of this encounter Care Teams Optical Laboratory Mechanic Relationship Specialty Start Date End Date Dylan Tomas MD [address] [place] [address] PCP - General Internal Medicine 12/09/14 documented as of this encounter Additional Source Comments The information contained in this document represents components of the legal health record. It is not the complete legal health record.[facility]
--- OUTSIDE RECORDS SUMMARY | 2025-04-22 16:48 | XMS_ITS | Encounter Summary ---
Author Organization [facility] Address [address] [facility] [address] [place] [address] Phone Care Team Providers Care Family Dinner Service Specialist Name Role Phone Dylan Tomas MD Primary Care Provider + Reason for Visit * Reason Onset Date Comments Medication Refill 11/02/2018 PT is requesti ng a Urostomy waffers and urostomy pouches order to be sent. [facility] , fax # [phone] Encounter Details Date Type Department Care Team (Late st Contact Info) Description 11/02/2018 Telephone [facility]'[address] [id number] Jenifer [email or web address] Medication Refill (PT is requesting a Urostomy waffers and urostomy pouches order to be sent. [facility] , fax # [phone]) Social History Tobacco Use Types Packs/Day Years [...] documented as of this encounter Care Teams Family Dinner Service Specialist Relationship Specialty Start Date End Date Dylan Tomas MD [address] [place] [address] PCP - General Internal Medicine 12/09/14 documented as of this encounter Additional Source Comments The information contained in this document represents components of the legal health record. It is not the complete legal health record.[facility]
--- OUTSIDE RECORDS SUMMARY | 2025-04-22 16:48 | XMS_ITS | Encounter Summary ---
Author Organization [facility] Address [address] [facility] [address] [place] [address] Phone Care Team Providers Care Sole Molding Machine Operator Name Role Phone Dylan Tomas MD Primary Care Provider + Encounter Details Date Type Department Care Team (Late st Contact Info) Description 12/24/2017 Procedure Pass [facility] [address] [place] [address] Social History Tobacco Use Types Packs/Day Years [...] documented as of this encounter Care Teams Sole Molding Machine Operator Relationship Specialty Start Date End Date Dylan Tomas MD [address] [place] [address] PCP - General Internal Medicine 12/09/14 documented as of this encounter Additional Source Comments The information contained in this document represents components of the legal health record. It is not the complete legal health record.[facility]
--- OUTSIDE RECORDS SUMMARY | 2025-04-22 16:48 | XMS_ITS | Encounter Summary ---
Author Organization [facility] Address [address] [facility] [address] [place] [address] Phone Care Team Providers Care Loans Officer Name Role Phone Dylan Tomas MD Primary Care Provider + Encounter Details Date Type Department Care Team (Late st Contact Info) Description 12/01/2017 Procedure Pass [facility] [address] [place] [address] Social History Tobacco Use Types Packs/Day Years [...] documented as of this encounter Care Teams Loans Officer Relationship Specialty Start Date End Date Dylan Tomas MD [address] [place] [phone] PCP - General Internal Medicine 12/09/14 documented as of this encounter Additional Source Comments The information contained in this document represents components of the legal health record. It is not the complete legal health record.[facility]
--- OUTSIDE RECORDS SUMMARY | 2025-04-22 16:48 | XMS_ITS | Encounter Summary ---
Author Organization [facility] Address [address] [facility] [address] [place] [address] Phone Care Team Providers Care Tool Grinding Machine Operator Name Role Phone Dylan Tomas MD Primary Care Provider + Encounter Details Date Type Department Care Team (Late st Contact Info) Description 02/28/2020 Procedure Pass [facility] [address] [place] [address] Social History Tobacco Use Types Packs/Day Years [...] documented as of this encounter Care Teams Tool Grinding Machine Operator Relationship Specialty Start Date End Date Dylan Tomas MD [address] [place] [phone] PCP - General Internal Medicine 12/09/14 documented as of this encounter Additional Source Comments The information contained in this document represents components of the legal health record. It is not the complete legal health record.[facility]
--- OUTSIDE RECORDS SUMMARY | 2025-04-22 16:48 | XMS_ITS | Encounter Summary ---
Author Organization [facility] Address [address] [place] [address] Phone Care Team Providers Care Forestry Worker Name Role Phone Dylan Tomas MD Primary Care Provider + Encounter Details Date Type Department Care Team ([facility] st Contact Info) Description 08/03/2024 Procedure Pass [facility] [address] [facility] [address] [place] [address] Social History Tobacco Use Types Packs/Day Years [...] documented as of this encounter Care Teams Forestry Worker Relationship Specialty Start Date End Date Dylan Tomas MD [address] [place] [phone] PCP - General Internal Medicine 12/09/14 documented as of this encounter Additional Source Comments The information contained in this document represents components of the legal health record. It is not the complete legal health record.[facility]
--- OUTSIDE RECORDS SUMMARY | 2025-04-22 16:48 | XMS_ITS | Encounter Summary ---
Author Organization [facility] Address [address] [address] [place] [address] Phone Care Team Providers Care Area Operations Manager Name Role Phone Dylan Tomas MD Primary Care Provider + Encounter Details Date Type Department Care Team (Late st Contact Info) Description 01/16/2015 Telephone [facility] Angio Interventional Radiology [address] [place] [id number] Lynette Apple RN Social History Tobacco Use [...] on filedocumented in this encounter Care Teams Area Operations Manager Relationship Specialty Start Date End Date Dylan Tomas MD [address] [place] [phone] PCP - General Internal Medicine 12/09/14 documented as of this encounter Additional Source Comments The information contained in this document represents components of the legal health record. It is not the complete legal health record.[facility]
== END 2025-04-22 16:04 | disposition home or self-care (01) ==
LOC: HO.WFDLDS 16:03
PROVIDERS: Visit Provider Nurse Practitioner Family
DX: Z00.00 Encounter for general adult medical examination without abnormal findings (principal)
CPT/HCPCS: 81001; 81003; 87086; 87088; 87186

== ENCOUNTER 2025-04-25 11:52 | Outpatient (AMB) | payer MEDICARE, SELFPAY ==
--- NOTE | 2025-04-25 12:08 | A.OFFPC_ITS ---
Vital Signs 04/25/25 12:14 Height 6 ft Weight 177 lb 6 oz BMI 24.1 BP 102/68 Blood Pressure Location Lt brachial Position Sitting Respiration 16 Pulse 86 Pulse Source Pulse Oximeter Temp 98.2 F Temp Source Temporal Artery Scan Pulse Oximetry (%) 93 Oxygen Delivery Method Nasal Cannula Intake Visit Reasons: [facility] Intake Note: Zia presents in the office today as he is transferring care from [place]. Allergies nitrofurantoin Allergy (Severe, Verified 04/25/25 12:12) Hives, felt hyper Medication List - Last Reconciled 04/26/25 by GRZEGORZ Claros acetaminophen (Tylenol) 325 mg PO QID PRN cephalexin 500 mg PO TID 7 days cholecalciferol (vitamin D3) 25 mcg PO DAILY swyanndwxzw-ocmlcumxk-dcsvsqxe 200-62.5-25 mcg (Trelegy Ellipta) 1 inh inhalation DAILY mecobalamin (vitamin B12) 1,000 mcg PO DAILY rosuvastatin 5 mg PO DAILY 90 days thiamine HCl (vitamin B1) 100 mg PO DAILY Tobacco use date assessed: 04/25/25 Fall risk assessment: No Falls in past year Last assessed Fall Risk: 04/25/25 Dental Screening Dental Screen Date: 04/25/25 Did you have a dental visit in the last 12 months?: No Did you have a dental problem in the last 6 months where you did not have access to dental care?: No Was dental information given to patient?: Patient declined HPI HPI Comments History of Present Illness Details 84-year-old male with a past medical his tory of leukocytosis, microalbuminuria, elevated fasting glucose presents for an appointment to establish care. Accompanied by . They are snow birds and go to [place] from June to September. Hyperlipidemia-treated with rosuvastatin 5 mg. 02/18/2025 triglycerides 80, total cholesterol 140, LDL cholesterol 81, HDL cholesterol 43. COPD-treated with Trelegy and uses albuterol and is on supplemental oxygen. He is followed by [facility] pulmonology in [place]. Quit smoking in the early 2 . Patient reports he is getting a CT scan to check a spot in his lung. Patient says he has not required albuterol for weeks. Patient says he has a diagnosis of rheumatoid arthritis, and he was previously evaluated at the arthritis treatment center but does not see anybody for this now. It affects his hands. History of bladder cancer, prostate cancer -2010 status post urostomy and prostatectomy. Did not know he had prostate cancer until pathology came back after surgery. Followed by Dr. Macias at the [facility]. He had surgery to remove a kidney stone in October. He gets frequent UTIs, and he has had urosepsis. Has felt fatigued the last week. No fevers or chills or flank pain. He had a urinalysis and urine culture on 04/22/2025 which shows UTI with E coli. He has been treated with amoxicillin and ciprofloxacin however culture shows resistance to ampicillin and intermediate susceptibility to ciprofloxacin. Renal function is normal. Fasting glucose was elevated. A1c today is 6% which is in prediabetic range. Patient declines flu vaccine. States it made him very sick. reports he is up-to-date with pneumonia vaccine. Does not want to get COVID booster. He had cataracts removed from both eyes a few years ago. ROS: Constitutional: No unexplained weight loss, fever, chills or night sweats. +fatigue Eyes: No vision changes, blurry vision, double vision, eye pain, eye redness, eye discharge. Respiratory: No increased SOB or cough, no hemoptysis Cardiovascular: No chest pain. No palpitations or pedal edema. Gastrointestinal: No anorexia, nausea, vomiting or diarrhea. No abdominal pain Genitourinary: No dysuria, hematuria, urinary frequency. Denies flank pain. Neurologic: No headache, dizziness, syncope Physical exam: Constitutional: Alert, in no distress. Neck: Supple, Full range of motion. No lymphadenopathy. Respiratory: mild decreased breast sounds throughout the lungs. No crackles, wheezes or rhonchi. Cardiovascular: S1 S2 regular. No murmurs. Genitourinary: No costovertebral angle tenderness. Extremities: Warm and well perfused. No clubbing, cyanosis or edema. MSK: degenerative joint changes noted in the hands bilaterally Psychiatric: Normal mood and affect [facility] Medical History (Updated 04/26/25 @ 11:04 by GRZEGORZ Claros) Chronic respiratory failure with hypoxia, on home oxygen therapy Rheumatoid arthritis Recurrent UTI Hyperlipidemia Prediabetes History of prostate cancer History of bladder cancer Arthritis COPD (chronic obstructive pulmonary disease) Kidney stones Surgical History (Updated 02/15/25 @ 15:02 by Cristopher Paulson CNP) History of urostomy Social History (Updated 04/25/25 @ 12:14 by Vale Starr CMA) Housing: House Alcohol intake: never Patient Tobacco Use Status: Former Tobacco user Cigarette Packs Per Day: 1 Cigarettes Per Day: 20 Years Smoked: 22 e-Cigarette/Vaping Use: Never Used Second Hand Smoke Exposure: No service: No Current occupational status: retired Cognitive needs: Yes Hearing needs: No Vision needs: No Questionnaire Thrive Questionnaire Date Thrive assessed: 02/15/25 I am a: Patient What is your living situation today?: I have a steady place to live Within the past 12 months, did the food you bought not last and you didn't have the money to get more?: Never true Within the past 12 months, did you worry whether your food would run out before you got money to buy more?: Never true Do you have trouble paying for medicines?: No Do you have trouble getting transportation to medical appointments?: No Do you have trouble paying your heating and electricity bill?: No Do you have trouble taking care of your child, family member or friend?: No Do you have trouble with day-to-day activities such as bathing, preparing meals, shopping, managing finances, etc.?: No Are you currently unemployed and looking for a job?: No Are you interested in more education?: No Please select the resources that you would like help with: None Currently or been in a relationship where the following occur: No concerns reported THRIVE Score: 0 AUDIT C Alcohol Use Questionnaire (AUDIT-C) 3. How often do you have six or more drinks on one occasion?: Never Total Score: 0 BRUCE-7 AMB Questionnaire BRUCE-7 Date BRUCE - 7 assessed: 02/15/25 Source: Developed by Drs. Jose Alejandro Skinner, Anjelica Valdez, Saurabh Rosenthal and colleagues, with an educational radha from [employer] Physical exam (Primary Care) Vital Signs: Last Vital Signs Temp 98.2 F 04/25/25 12:14 Pulse 86 04/25/25 12:14 Resp 16 04/25/25 12:14 BP 102/68 04/25/25 12:14 Pulse Ox 93 04/25/25 12:14 Oxygen Delivery Method Nasal Cannula 04/25/25 12:14 BMI result Body Mass Index 24.1 Tobacco/Smoking Status: Tobacco use Status Tobacco use date assessed 04/25/25 04/25/25 12:17 Patient Tobacco Use Status Former Tobacco user 04/25/25 12:17 e-Cigarette/Vaping Use Never Used 04/25/25 12:14 Thrive Assessment: Date of Thrive Assessment Date Thrive assessed 02/15/25 04/25/25 12:10 Currently or been in a relationship where the following occur: No concerns reported Results AMB Hemoglobin A1c AMB Hemoglobin A1c 6.0 % Last Edit by Vale Starr CMA on 04/25/25 13:11 Results Reviewed Results Reviewed: Laboratory Last Values Hgb A1c (Clinic) 6.0 % (4.0-6.0) 04/25/25 13:11 Coding Level of Care Code Est Pt Level 5 (92250) Complex EM visit Add On G2211 Diagnoses Chronic bronchitis, unspecified chronic bronchitis type J42 COPD type: chronic bronchitis Chronic bronchitis type: unspecified History of bladder cancer Z85.51 History of prostate cancer Z85.46 Prediabetes R73.03 Hyperlipidemia E78.5 Recurrent UTI N39.0 Chronic respiratory failure with hypoxia, on home oxygen therapy J96.11; Z99.81 Rheumatoid arthritis involving both hands, unspecified whether rheumatoid factor present M06.9 Rheumatoid arthritis location: hand Rheumatoid factor presence: unspecified presence Laterality: bilateral Time Spent (min) 50 Comment reviewing history, direct care, completing documentation Assessment & Plan Assessment & Plan (1) COPD (chronic obstructive pulmonary disease): Code(s): J44.9 - Chronic obstructive pulmonary disease, unspecified Category: Medical Qualifiers: COPD type: chronic bronchitis Chronic bronchitis type: unspecified Qualified Code(s): J42 - Unspecified chronic bronchitis Plan: Followed by [facility] pulmonology. Per patient CT chest pending to check ?nodule. Records transfer pending. (2) History of bladder cancer: Code(s): Z85.51 - Personal history of malignant neoplasm of bladder Category: Medical Plan: No known recurrence. Followed by urology, Dr Macias. (3) History of prostate cancer: Code(s): Z85.46 - Personal history of malignant neoplasm of prostate Category: Medical Plan: PSA undectable. No known recurrence. Followed by urologyDr Macias. (4) Prediabetes: Code(s): R73.03 - Prediabetes Category: Medical Plan: Recommended a trial of lifestyle modification. Patient declines referral to wire taper. (5) Hyperlipidemia: Code(s): E78.5 - Hyperlipidemia, unspecified Category: Medical Plan: Controlled. Continue Rosuvastatin. (6) Recurrent UTI: Code(s): N39.0 - Urinary tract infection, site not specified Category: Medical Plan: Susceptible to 1st generation cephalosporin. Sent Keflex. Reviewed signs and symptoms warranting ED evaluation. (7) Chronic respiratory failure with hypoxia, on home oxygen therapy: Code(s): J96.11 - Chronic respiratory failure with hypoxia; Z99.81 - Dependence on supplemental oxygen Category: Medical (8) Rheumatoid arthritis: Code(s): M06.9 - Rheumatoid arthritis, unspecified Category: Medical Qualifiers: Rheumatoid arthritis location: hand Rheumatoid factor presence: unspecified presence Laterality: bilateral Qualified Code(s): M06.9 - Rheumatoid arthritis, unspecified Plan: I will need to review his previous records. Patient says he is not following with rheumatology and not on meds. Check RF and GABBY. Plan Follow up in 2 months. Orders: Orders Complete Blood Count Auto Diff 1 Month E78.5 - Hyperlipidemia, unspecified, J44.9 - Chronic obstructive pulmonary disease, unspecified, N39.0 - Urinary tract infection, site not specified, R73.03 - Prediabetes, Z85.46 - Personal history of malignant neoplasm of prostate, Z85.51 - Personal history of malignant neoplasm of bladder Vitamin B12 1 Month E78.5 - Hyperlipidemia, unspecified, J44.9 - Chronic obstructive pulmonary disease, unspecified, N39.0 - Urinary tract infection, site not specified, R73.03 - Prediabetes, Z85.46 - Personal history of malignant neoplasm of prostate, Z85.51 - Personal history of malignant neoplasm of bladder, Z91.89 - Other specified personal risk factors, not elsewhere classified Rheumatoid Factor Today M06.9 - Rheumatoid arthritis, unspecified AMB Hemoglobin A1c 04/25/25 Z13.9 - Encounter for screening, unspecified Hemoglobin A1c 1 Month E78.5 - Hyperlipidemia, unspecified, J44.9 - Chronic obstructive pulmonary disease, unspecified, N39.0 - Urinary tract infection, site not specified, R73.03 - Prediabetes, R73.9 - Hyperglycemia, unspecified, Z85.46 - Personal history of malignant neoplasm of prostate, Z85.51 - Personal history of malignant neoplasm of bladder Comprehensive Met. Panel 1 Month E78.5 - Hyperlipidemia, unspecified, J44.9 - Chronic obstructive pulmonary disease, unspecified, N39.0 - Urinary tract i nfection, site not specified, R73.03 - Prediabetes, Z85.46 - Personal history of malignant neoplasm of prostate, Z85.51 - Personal history of malignant neoplasm of bladder Vitamin D 25-OH (D2 and D3) 1 Month E78.5 - Hyperlipidemia, unspecified, J44.9 - Chronic obstructive pulmonary disease, unspecified, N39.0 - Urinary tract infection, site not specified, R73.03 - Prediabetes, Z85.46 - Personal history of malignant neoplasm of prostate, Z85.51 - Personal history of malignant neoplasm of bladder UA w Microscopic 1 Month E78.5 - Hyperlipidemia, unspecified, J44.9 - Chronic obstructive pulmonary disease, unspecified, N39.0 - Urinary tract infection, site not specified, R39.9 - Unspecified symptoms and signs involving the genitourinary system, R73.03 - Prediabetes, Z85.46 - Personal history of malignant neoplasm of prostate, Z85.51 - Personal history of malignant neoplasm of bladder Urine Culture 1 Month E78.5 - Hyperlipidemia, unspecified, J44.9 - Chronic obstructive pulmonary disease, unspecified, N39.0 - Urinary tract infection, site not specified, R39.9 - Unspecified symptoms and signs involving the ge nitourinary system, R73.03 - Prediabetes, Z85.46 - Personal history of malignant neoplasm of prostate, Z85.51 - Personal history of malignant neoplasm of bladder GABBY Reflex Titer and Pattern Today M06.9 - Rheumatoid arthritis, unspecified Medications: New cephalexin 500 mg PO TID 21 caps 0RF 7 days
[2025-04-25 12:14] VITALS: BP 102/68; PULSE 86; RESP 16; TEMP 36.8; O2SAT 93; BMI 24.1
== END 2025-04-25 13:09 | disposition home or self-care (01) ==
LOC: HO.HMCFM 11:52
PROVIDERS: PCP Physician Assistant Medical; Visit Provider Physician Assistant Medical
DX: Z13.9 Encounter for screening, unspecified (principal)

== ENCOUNTER → 2025-04-25 11:52 | Outpatient (BNVA) | payer MEDICARE, SELFPAY | PROVIDERS: PCP Physician Assistant Medical; Visit Provider Physician Assistant Medical | DX: Z76.89 Persons encountering health services in other specified circumstances (principal); J42 Unspecified chronic bronchitis; J96.11 Chronic respiratory failure with hypoxia; R73.03 Prediabetes; E78.5 Hyperlipidemia, unspecified; N39.0 Urinary tract infection, site not specified; M06.9 Rheumatoid arthritis, unspecified; Z85.51 Personal history of malignant neoplasm of bladder; Z85.46 Personal history of malignant neoplasm of prostate; Z79.899 Other long term (current) drug therapy; Z99.81 Dependence on supplemental oxygen; Z28.21 Immunization not carried out because of patient refusal | CPT/HCPCS: 83036; 99212 ==